=== PATIENT | female | born 1930 | race Caucasian/White ===

== ENCOUNTER 2017-02-08 13:32 | Emergency (ER) | payer MEDICARE ==
[2017-02-08] MEDS ORDERED: HYDROCODONE/ACETAMINOPHEN 5-325 MG TABLET PO ONE (13:57)
--- NOTE | 2017-02-08 14:22 | RADIOLOGY REPORT (SQ) ---
EXAM DESCRIPTION: CT HEAD WITHOUT COMPLETED DATE/TIME: 02/08/2017 2:06 pm REASON FOR STUDY: fall, gonzalez COMPARISON: 05/08/2012 TECHNIQUE: Axial images acquired through the brain without intravenous contrast. Images reviewed wi th bone, brain and subdural windows. Images stored on PACS. All CT scanners at this facility use dose modulation, iterative reconstruction, and/or weight based d osing when appropriate to reduce radiation dose to as low as reasonably achievable (ALARA). [facility]: Dose Right [facility]: CareDose [facility]: Dose Right [facility]: Teradose 4D [facility]: [employer] RADIATION DOSE: 63.81 mGy. LIMITATIONS: None. FINDINGS: VENTRICLES: Prominent. CEREBRUM: No masses. No hemorrhage. No midline shift. Areas of low density in the white matter mos t likely due to chronic micro-vascular ischemic change. No evidence for acute infarction. CEREBELLUM: No masses. No hemorrhage. No alteration of density. No evidence for acute infarction. EXTRAAXIAL SPACES: Mild age-related involutional change. No fluid collections. No masses. ORBITS AND GLOBE: No intra- or extraconal masses. Normal contour of globe without masses. CALVARIUM: No fracture. PARANASAL SINUSES: Fluid left maxillary sinus. SOFT TISSUES: No mass or hematoma. OTHER: No other significant finding. IMPRESSION: MILD CHRONIC CHANGES OF ATROPHY AND MICROVASCULAR ISCHEMIA. NO ACUTE PROCESS. TECHNICAL DOCUMENTATION: JOB ID: [id number] Quality ID # [id number]: Final reports with documentation of one or more dose reduction techniques (e.g., Au tomated exposure control, adjustment of the mA and/or kV according to patient size, use of iterative reconstruction technique) 2010 [employer]- All Rights Reserved
--- NOTE | 2017-02-08 15:10 | RADIOLOGY REPORT (SQ) ---
EXAM DESCRIPTION: CHEST SINGLE VIEW COMPLETED DATE/TIME: 02/08/2017 2:40 pm REASON FOR STUDY: fall, gonzalez COMPARISON: 08/23/2015 NUMBER OF VIEWS: One view. TECHNIQUE: Single frontal radiographic view of the chest acquired. LIMITATIONS: None. FINDINGS: LUNGS AND PLEURA: No opacities, masses or pneumothorax. No pleural effusion. MEDIASTINUM AND HILAR STRUCTURES: No masses. Contour normal. HEART AND VASCULAR STRUCTURES: Heart enlarged without failure. Normal vasculature. BONES: No acute findings. HARDWARE: Stable position of defibrillator. OTHER: No other significant finding. IMPRESSION: HEART ENLARGED WITHOUT FAILURE. NO OTHER SIGNIFICANT RADIOGRAPHIC FINDING IN THE CHEST. TECHNICAL DOCUMENTATION: JOB ID: [id number] [employer]- All Rights Reserved
--- NOTE | 2017-02-08 15:12 | RADIOLOGY REPORT (SQ) ---
EXAM DESCRIPTION: KNEE BILATERAL 1-2 VIEWS COMPLETED DATE/TIME: 02/08/2017 2:40 pm REASON FOR STUDY: fall, gonzalez COMPARISON: 08/25/2013 NUMBER OF VIEWS: Four views. TECHNIQUE: AP and lateral radiographic images acquired of the right and left knee. LIMITATIONS: None. FINDINGS: Bones are osteopenic. Bilateral knee arthroplasty there has been revision of the right fe moral component since the prior. No acute fracture identified. IMPRESSION: Intact knee arthroplasty. TECHNICAL DOCUMENTATION: JOB ID: [id number] [employer]- All Rights Reserved
[2017-02-08 15:26] LABS: APPEARANCE,URINE CLEAR; BILIRUBIN,URINE NEGATIVE (NEGATIVE); GLUCOSE, URINE NEGATIVE (NEGATIVE); KETONES,URINE NEGATIVE (NEGATIVE); LEUKOCYTE ESTERASE,URINE TRACE (NEGATIVE); NITRITE,URINE NEGATIVE (NEGATIVE); PROTEIN,URINE NEGATIVE (NEGATIVE); URINE SPECIFIC GRAVITY 1.008; UROBILINOGEN,URINE NEGATIVE mg/dL (<2.0)
[2017-02-08] MEDS ORDERED: PROCHLORPERAZINE EDISYLATE INJ 10 MG/2 ML VIAL IV ONE (15:35)
[2017-02-08] MEDS ORDERED: NORMAL SALINE 1000 ML 500 ML IV ONE (15:35)
[2017-02-08 16:56] LABS: ABSOLUTE EOSINOPHILS # (AUTO) 0.3 10^3/uL (0.0-0.6); ABSOLUTE LYMPHOCYTES (AUTO) 2.2 10^3/uL (0.5-4.7); ABSOLUTE MONOCYTES (AUTO) 0.6 10^3/uL (0.1-1.4); ABSOLUTE NEUT (AUTO) 4.8 10^3/uL (1.7-8.2); BASOPHILS % (AUTO) 0.6 % (0-2); EOSINOPHILS % (AUTO) 4.1 % (0-6); HEMOGLOBIN 10.3 g/dL (12.0-15.5); HGB HCT DIFFERENCE -0.1; LYMPHOCYTES % (AUTO) 27.2 % (13-45); MEAN CORPUSCULAR HEMOGLOBIN 31.6 pg (27.0-33.4); MEAN CORPUSCULAR HGB CONC 33.3 g/dL (32.0-36.0); MEAN CORPUSCULAR VOLUME 95 fl (80-97); MONOCYTES % (AUTO) 7.7 % (3-13); RED BLOOD COUNT 3.27 10^6/uL (3.72-5.28); RED CELL DISTRIBUTION WIDTH 13.4 % (11.5-14.0); SEGMENTED NEUTROPHILS % (AUTO) 60.4 % (42-78)
--- NOTE | 2017-02-08 17:01 | EKG REPORT ---
SEVERITY:- ABNORMAL ECG - ATRIAL-SENSED VENTRICULAR-PACED COMPLEXES : Confirmed by: Bijan Alberto MD 08-Feb-2017 17:00:58
[2017-02-08 17:12] LABS: ALANINE AMINOTRANSFERASE 32 U/L (9-52); ALBUMIN 3.5 g/dL (3.5-5.0); ALKALINE PHOSPHATASE 79 U/L (38-126); ANION GAP 9 (5-19); ASPARTATE AMINO TRANSFERASE 19 U/L (14-36); BILIRUBIN,DIRECT 0.4 mg/dL (0.0-0.4); BILIRUBIN,TOTAL 0.6 mg/dL (0.2-1.3); BLOOD UREA NITROGEN 37 mg/dL (7-20); CALCIUM 9.7 mg/dL (8.4-10.2); CARBON DIOXIDE 27 mmol/L (22-30); CHLORIDE 106 mmol/L (98-107); CREATINE KINASE 30 U/L (30-135); CREATININE RESULT 1.05 mg/dL (0.52-1.25); GLUCOSE 100 mg/dL (75-110); POTASSIUM 4.1 mmol/L (3.6-5.0); SODIUM 141.6 mmol/L (137-145); TOTAL PROTEIN 5.9 g/dL (6.3-8.2)
[2017-02-08 17:24] LABS: CREATINE KINASE MB 0.35 ng/mL (<4.55); TROPONIN I 0.028 ng/mL
--- NOTE | 2017-02-08 18:07 | ER Document Report ---
ED Fall - General Chief Complaint: Fall Stated Complaint: FALL,HEAD PAIN Time Seen by Provider: 02/08/17 13:40 Mode of Arrival: Medic Information source: Patient, Relative Notes: Patient is an 86-year-old female brought into the emergency department today for bilateral knee pain and headache. Patient had had a pacemaker placed 3 days ago and they apparently had some issues getting 1 of the leads in, so placed her left arm in a sling and told her not to use it. Patient walks with a walker at home anyway normally, so when she went to use the walker after being discharged and could not apply any weight with the left arm, she lost her balance and fell yesterday, falling on both knees. She did not hit her head or lose consciousness, hurt anything else. The headache she states started today. She had some numbness to her head and then pain across the front of her head "like a band." She does not have a history of migraines and did not injure the head. She denies any blurred vision , nausea, vomiting. TRAVEL OUTSIDE OF THE [place] IN LAST 30 DAYS: No - Related data Allergies/Adverse Reactions: Sulfa (Sulfonamide Antibiotics) Allergy (Intermediate, Verified 12/25/13 14:12) Generalized rash codeine [Codeine] Allergy (Verified 01/10/15 10:16) Past Medical History - General Information source: Patient, Relative - Social History Smoking Status: Never Smoker Chew tobacco use (# tins/day): No Frequency of alcohol use: None Drug Abuse: None Family History: Reviewed & Not Pertinent - Past Medical History Cardiac Medical History: Reports: Hx Congestive Heart Failure - last episode Sep 2012, Hx Hypercholesterolemia - meds intermittently x 25 years, Hx Hypertension Denies: Hx Atrial Fibrillation, Hx Coronary Artery Disease, Hx Heart Attack, Hx Peripheral Vascular Disease, Hx Pulmonary Embolism, Hx Heart Murmur Pulmonary Medical History: Reports: Hx Bronchitis - tx'ed effectively with Abx ( Rx 7-10 days), Hx Pneumonia - > 25 years ago, Hx Sleep Apnea - CPAP Qhs Dx'ed approx 10 years ago Denies: Hx Asthma, Hx COPD, Hx Respiratory Failure, Hx Tuberculosis Neurological Medical History: Denies: Hx Cerebrovascular Accident, Hx Seizures Endocrine Medical History: Denies: Hx Graves' Disease, Hx Hyperthyroidism, Hx Hypothyroidism Renal/ Medical History: Denies: Hx End Stage Renal Disease, Hx Kidney Stones, Hx Ovarian Cysts, Hx Peritoneal Dialysis, Hx Pelvic Inflammatory Disease Malignancy Medical History: Denies: Hx Breast Cancer, Hx Cervical Cancer, Hx Leukemia, Hx Lung Cancer, Hx Ovarian Cancer GI Medical History: Reports: Hx Hepatitis - 1961. Denies: Hx Crohn's Disease, Hx Gastroesophageal Reflux Disease, Hx Hiatal Hernia, Hx Irritable Bowel, Hx Liver Failure, Hx Ulcer Musculoskeltal Medical History: Reports Hx Arthritis, Denies Hx Fibromyalgia, Denies Hx Multiple Sclerosis, Denies Hx Muscular Dystrophy Psychiatric Medical History: Denies: Hx Bipolar Disorder, Hx Dementia, Hx Depression, Hx Post Traumatic Stress Disorder, Hx Schizophrenia Traumatic Medical History: Reports: Hx Fractures - RT tibial Fx 2011, denies surgical intervention, reports brace x 9 weeks Infectious Medical History: Reports: Hx Hepatitis - 1961. Denies: Hx HIV Past Surgical History: Reports: Hx Appendectomy - 1949, Hx Cardiac Surgery - pacemaker, Hx Cholecystectomy - open jovi, post-op dehiscence, Hx Hysterectomy - Unilat S&O 1956, COY 1974, Hx Orthopedic Surgery - Left Knee Sx, Right Knee Sx x 2, Back Sx (MILD). Denies: Hx Bowel Surgery, Hx Section, Hx Colostomy, Hx Coronary Artery Bypass Graft, Hx Gastric Bypass Surgery, Hx Herniorrhaphy, Hx Mastectomy, Hx Open Heart Surgery, Hx Pacemaker, Hx Tonsillectomy, Hx Tubal Ligation - Immunizations Hx Diphtheria, Pertussis, Tetanus Vaccination: No Hx Pneumococcal Vaccination: 09/15/08 Review of Systems - Review of Systems Constitutional: No symptoms reported EENT: No symptoms reported Cardiovascular: No symptoms reported Respiratory: No symptoms reported Gastrointestinal: No symptoms reported Genitourinary: No symptoms reported Female Genitourinary: No symptoms reported Musculoskeletal: See HPI Skin: No symptoms reported Hematologic/Lymphatic: No symptoms reported Neurological/Psychological: No symptoms reported Physical Exam - Vital signs Vitals: Temp Pulse Resp BP Pulse Ox 98.1 F 62 16 130/65 H 93 02/08/17 13:37 02/08/17 13:37 02/08/17 13:37 02/08/17 13:37 02/08/17 13:37 - Notes Notes: PHYSICAL EXAMINATION: GENERAL: Well-appearing and in no acute distress. HEAD: Atraumatic, normocephalic. EYES: Pupils equal round and reactive to light, extraocular movements intact, sclera anicteric, conjunctiva are normal. ENT: ear canals without erythema or foreign body, TMs pearly maxwell with good bony landmarks, nares patent, oropharynx clear without exudates. Moist mucous membranes. NECK: Normal range of motion, supple without lymphadenopathy LUNGS: CTAB and equal. No wheezes rales or rhonchi. HEART: Regular rate and rhythm without murmurs ABDOMEN: Soft, no tenderness. No guarding, no rebound BACK: no vertebral tenderness, normal ROM GI/: no CVA tenderness EXTREMITIES: Normal range of motion, no pitting edema. No cyanosis. NEUROLOGICAL: Cranial nerves grossly intact. Normal sensory/motor exams. PSYCH: Normal mood, normal affect. SKIN: Warm, Dry, normal turgor, no rashes or lesions noted Course - Vital Signs Vital signs: Temp Pulse Resp BP Pulse Ox 98.1 F 62 19 122/69 96 02/08/17 13:37 02/08/17 13:37 02/08/17 17:02 02/08/17 17:02 02/08/17 17:02 - Laboratory Result Diagrams: 02/08/17 16:40 02/08/17 16:40 Laboratory results interpreted by me: 02/08/17 02/08/17 02/08/17 15:05 16:40 16:40 RBC 3.27 L Hgb 10.3 L Hct 31.0 L BUN 37 H Est GFR (Non-Af Amer) 50 L Total Protein 5.9 L Ur Leukocyte Esterase TRACE H Discharge - Discharge Clinical Impression: Fall Qualifiers: Encounter type: initial encounter Qualified Code(s): W19.XXXA - Unspecified fall, initial encounter Knee pain, bilateral Qualifiers: Chronicity: acute Qualified Code(s): M25.561 - Pain in right knee; M25.562 - Pain in left knee Headache Qualifiers: Headache type: unspecified Headache chronicity pattern: acute headache Intractability: not intractable Qualified Code(s): R51 - Headache Condition: Stable Disposition: HOME, SELF-CARE Additional Instructions: Return immediately for any new or worsening symptoms. Follow up with Dr. Briones on Friday, call Friday morning to get in to his office. Prescriptions: Hydrocodone/Acetaminophen [[place] 5-325 mg Tablet] 1 tab PO Q4 #20 tablet
[2017-02-08 19:56] VITALS: BP 141/68
== END 2017-02-08 19:59 | disposition home or self-care (01) ==
LOC: ER 13:32
DX: R51 Headache (principal); M25.562 Pain in left knee; M25.561 Pain in right knee; W18.30XA Fall on same level, unspecified, initial encounter; Y92.009 Unspecified place in unspecified non-institutional (private) residence as the place of occurrence of the external cause; I50.9 Heart failure, unspecified; I11.0 Hypertensive heart disease with heart failure; E78.00 Pure hypercholesterolemia, unspecified; Z95.0 Presence of cardiac pacemaker; Z88.6 Allergy status to analgesic agent; Z88.2 Allergy status to sulfonamides; Z90.49 Acquired absence of other specified parts of digestive tract; Z90.710 Acquired absence of both cervix and uterus
CPT/HCPCS: 93005; 99285; 96374; 36415; 87086; 82553; 82550; 85025; 80053; 81001; 84484; 71010; 73560; 70450; 93010; J0780; J7030; A9270

== ENCOUNTER 2017-03-05 02:58 | Emergency (ER) | payer MEDICARE ==
[2017-03-05] MEDS ORDERED: NORMAL SALINE 1000 ML 1,000 ML IV ONE (04:15)
[2017-03-05] MEDS ORDERED: CLINDAMYCIN 600 MG/D5W RTU 50 ML IV ONE (04:15)
[2017-03-05] MEDS ORDERED: DEXAMETHASONE SOD PHOS INJ 10 MG/1 ML VIAL IV ONE (04:15)
--- NOTE | 2017-03-05 04:21 | ER Document Report ---
ED General - General Chief Complaint: Facial Swelling Stated Complaint: EAR PAIN Time Seen by Provider: 03/05/17 03:45 Mode of Arrival: Ambulatory Information source: Patient Notes: 86-year-old female presents to ED for facial swelling from right ear down to the mid neck area with right ear pain right upper jaw dental pain. TRAVEL OUTSIDE OF THE [place] IN LAST 30 DAYS: No - HPI Onset: Yesterday Onset/Duration: Gradual Quality of pain: Achy, Pressure Severity: Mild Pain Level: 2 Associated symptoms: Earache, Sore throat, Other - Facial swelling from right ear around to the midneck Exacerbated by: Movement Relieved by: Denies Similar symptoms previously: No Recently seen / treated by doctor: Yes - Related Data Allergies/Adverse Reactions: Sulfa (Sulfonamide Antibiotics) Allergy (Intermediate, Verified 12/25/13 14:12) Generalized rash codeine [Codeine] Allergy (Verified 01/10/15 10:16) Past Medical History - General Information source: Patient - Social History Smoking Status: Former Smoker Cigarette use (# per day): No Chew tobacco use (# tins/day): No Smoking Education Provided: No Frequency of alcohol use: None Drug Abuse: None Lives with: Family - granddaughter Family History: Arthritis, CAD, CVA, Hyperlipidemia, Hypertension, Malignancy. denies: COPD, DM, Thyroid Disfunction - Past Medical History Cardiac Medical History: Reports: Hx Congestive Heart Failure - last episode Sep 2012, Hx Hypercholesterolemia - meds intermittently x 25 years, Hx Hypertension Pulmonary Medical History: Reports: Hx Bronchitis - tx'ed effectively with Abx ( Rx 7-10 days), Hx Pneumonia - > 25 years ago, Hx Sleep Apnea - CPAP Qhs Dx'ed approx 10 years ago EENT Medical History: Reports: None Neurological Medical History: Reports: None Endocrine Medical History: Reports: None Renal/ Medical History: Reports: Hx 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 Malignancy Medical History: Reports: None GI Medical History: Reports: Hx Hepatitis - 1961 Musculoskeltal Medical History: Reports Hx Arthritis, Reports Hx Musculoskeletal Deformity, Reports Hx Musculoskeletal Trauma Skin Medical History: Reports None Psychiatric Medical History: Reports: None Traumatic Medical History: Reports: Hx Fractures - RT tibial Fx 2011, denies surgical intervention, reports brace x 9 weeks Infectious Medical History: Reports: Hx Hepatitis - 1961 Past Surgical History: Reports: Hx Appendectomy - 1950, Hx Cardiac Surgery - pacemaker, Hx Cholecystectomy - open jovi, post-op dehiscence, Hx Hysterectomy , Hx Orthopedic Surgery - Left Knee Sx, Right Knee Sx x 2, Back Sx (MILD), Hx Pacemaker - Immunizations Hx Diphtheria, Pertussis, Tetanus Vaccination: No Hx Pneumococcal Vaccination: 09/15/08 Review of Systems - Review of Systems Constitutional: No symptoms reported EENT: Ear pain, Mouth pain, Dental problem - 2 swelling, Other - Swelling from in front of the right ear down to the mid neck area Cardiovascular: No symptoms reported Respiratory: No symptoms reported Gastrointestinal: No symptoms reported Genitourinary: No symptoms reported Female Genitourinary: No symptoms reported Musculoskeletal: No symptoms reported Skin: No symptoms reported Hematologic/Lymphatic: No symptoms reported Neurological/Psychological: No symptoms reported -: Yes All other systems reviewed and negative Physical Exam - Vital signs Vitals: Temp Pulse Resp BP Pulse Ox 97.6 F 66 16 137/69 H 95 03/05/17 03:06 03/05/17 03:06 03/05/17 03:06 03/05/17 03:06 03/05/17 03:06 Interpretation: Normal - General General appearance: Appears well, Alert - HEENT Head: Normocephalic, Atraumatic Eyes: Normal Pupils: PERRL Teeth diagram: 1 - The decayed painful tooth, gum swollen, facial swelling Neck: Lymphadenopathy - Respiratory Respiratory status: No respiratory distress Chest status: Nontender Breath sounds: Normal Chest palpation: Normal - Cardiovascular Rhythm: Regular Heart sounds: Normal auscultation Murmur: No - Abdominal Inspection: Normal Distension: No distension Bowel sounds: Normal Tenderness: Nontender Organomegaly: No organomegaly - Back Back: Normal, Nontender - Extremities General upper extremity: Normal inspection, Nontender, Normal color, Normal ROM , Normal temperature General lower extremity: Normal inspection, Nontender, Normal color, Normal ROM , Normal temperature, Normal weight bearing. No: Rachel's sign - Neurological Neuro grossly intact: Yes Cognition: Normal Orientation: AAOx4 Dougherty Coma Scale Eye Opening: Spontaneous Dougherty Coma Scale Verbal: Oriented Rowena Coma Scale Motor: Obeys Commands Rowena Coma Scale Total: 15 Speech: Normal Motor strength normal: LUE, RUE, LLE, RLE Sensory: Normal - Psychological Associated symptoms: Normal affect, Normal mood - Skin Skin Temperature: Warm Skin Moisture: Dry Skin Color: Normal Course - Re-evaluation Re-evalutation: 03/05/17 07:17 O2 sat was 96% when I checked it before discharge 03/05/17 07:[address] Miller before doing CT. He recommended clindamycin Decadron IV fluids and CT soft tissue neck with contrast. These were completed and reviewed the results with Dr. Miller and he instructed to send patient home on clindamycin and sour candy. Patient has been instructed to return to the ED for any increase in swelling difficulty swallowing or increased pain. - Vital Signs Vital signs: Temp Pulse Resp BP Pulse Ox 97.5 F 65 16 126/57 H 91 L 03/05/17 06:15 03/05/17 06:15 03/05/17 06:15 03/05/17 06:15 03/05/17 06:15 - Laboratory Result Diagrams: 03/05/17 04:30 03/05/17 04:30 Laboratory results interpreted by me: 03/05/17 03/05/17 04:30 04:30 RBC 3.64 L Hgb 11.3 L Hct 33.7 L BUN 45 H Creatinine 1.70 H Est GFR ( Amer) 35 L Est GFR (Non-Af Amer) 29 L Glucose 112 H - Diagnostic Test Radiology reviewed: Image reviewed, Reports reviewed Discharge - Discharge Clinical Impression: Parotitis, acute Condition: Stable Disposition: HOME-SNF (ED ONLY) Additional Instructions: You have an infection to your parotid gland bilaterally. you will be placed on antibiotic needs to suck on sour candy to help drain the parotid gland. Clindamycin You have been given a prescription for the antibiotic clindamycin. It is often prescribed for infections in the mouth, such as dental infections or abscesses, and for skin infections due to MRSA. It's important that you take all the medication, unless instructed otherwise by your physician. Failure to complete the entire course can result in relapse of your condition. Common side effects of antibiotics include nausea, intestinal cramping, or diarrhea. Women may develop vaginal yeast infections, and babies can get yeast (thrush) in the mouth following the use of antibiotics. Contact your physician if you develop significant side effects from this medication. Allergy to this antibiotic can result in hives, wheezing, faintness, or itching. If symptoms of allergy occur, stop the medication and call the doctor. STEROID MEDICATION: You have been given an injection of medicine of the cortisone/steroid class. This medication is used to control inflammation or allergy. It is often continued as a pill for a short period of time, until the acute process subsides. There are usually no side effects from short-term use of cortisone-like medications. Some persons feel an increased sense of well-being and are not sleepy at bedtime. Long-term use of cortisone medications is best avoided, unless required for a severe condition. If your condition does not remit, or relapses after the course of corticosteroid medication, you should consult your physician. Intravenous (IV) Fluids As part of your care today, you received intravenous (IV) fluids. IV fluids are administered to patients who are dehydrated or to those who have certain chemical (electrolyte) abnormalities that need correcting. FOLLOW-UP CARE: If you have been referred to a physician for follow-up care, call the physician s office for an appointment as you were instructed or within the next two days. If you experience worsening or a significant change in your symptoms, notify the physician immediately or return to the Emergency Department at any time for re-evaluation. Patient needs to be seen by a physician within the next 24-48 hours. Prescriptions: Clindamycin HCl 300 mg PO QID 10 Days
[2017-03-05 04:52] LABS: ABSOLUTE BASOPHILS # (AUTO) 0.1 10^3/uL (0.0-0.2); ABSOLUTE EOSINOPHILS # (AUTO) 0.5 10^3/uL (0.0-0.6); ABSOLUTE LYMPHOCYTES (AUTO) 1.2 10^3/uL (0.5-4.7); ABSOLUTE MONOCYTES (AUTO) 0.6 10^3/uL (0.1-1.4); ABSOLUTE NEUT (AUTO) 6.1 10^3/uL (1.7-8.2); BASOPHILS % (AUTO) 0.7 % (0-2); EOSINOPHILS % (AUTO) 5.8 % (0-6); HEMATOCRIT 33.7 % (36.0-47.0); HEMOGLOBIN 11.3 g/dL (12.0-15.5); HGB HCT DIFFERENCE 0.2; LYMPHOCYTES % (AUTO) 14.4 % (13-45); MEAN CORPUSCULAR HGB CONC 33.5 g/dL (32.0-36.0); MEAN CORPUSCULAR VOLUME 93 fl (80-97); MONOCYTES % (AUTO) 6.8 % (3-13); RED BLOOD COUNT 3.64 10^6/uL (3.72-5.28); RED CELL DISTRIBUTION WIDTH 13.6 % (11.5-14.0); SEGMENTED NEUTROPHILS % (AUTO) 72.3 % (42-78); WHITE BLOOD COUNT 8.5 10^3/uL (4.0-10.5)
[2017-03-05 05:07] LABS: ANION GAP 11 (5-19); BLOOD UREA NITROGEN 45 mg/dL (7-20); CALCIUM 9.8 mg/dL (8.4-10.2); CARBON DIOXIDE 27 mmol/L (22-30); CHLORIDE 102 mmol/L (98-107); GLUCOSE 112 mg/dL (75-110); POTASSIUM 4.6 mmol/L (3.6-5.0)
--- NOTE | 2017-03-05 06:40 | RADIOLOGY REPORT (SQ) ---
EXAM DESCRIPTION: CT SOFT TISSUE NECK WITH COMPLETED DATE/TIME: 03/05/2017 6:05 am REASON FOR STUDY: face and neck swelling COMPARISON: None. TECHNIQUE: Post IV contrasted scanning from skull base through lung apices with review of bone, soft tissue and lung windows. Reconstructed coronal and sagittal MPR images reviewed. All images stored on PACS. All CT scanners at this facility use dose modulation, iterative reconstruction, and/or weight based d osing when appropriate to reduce radiation dose to as low as reasonably achievable (ALARA). [facility]: Dose Right [facility]: CareDose [facility]: Dose Right [facility]: Teradose 4D [facility]: [employer] CONTRAST TYPE AND DOSE: contrast/concentration: Isovue 370.00 mg/ml; Total Contrast Delivered: 75.0 ml; Total Saline Delivered: 55.0 ml RENAL FUNCTION: Creatinine 1.7. RADIATION DOSE: Up-to-date CT equipment and radiation dose reduction techniques were employed. CTDIv ol: 26.0 mGy. DLP: 841 mGy-cm. . LIMITATIONS: None. FINDINGS: SKULL BASE: Intact. MAJOR SALIVARY GLANDS: Wdyk-jw-zskayzbq enlargement and inflammation of bilateral parotid glands, rig ht more than left. No significant fluid collection. No abscess. No radiopaque sialolith. LYMPHADENOPATHY: No adenopathy. MUCOSAL MASSES OR ASYMMETRY: No mucosal masses or asymmetry. LARYNX/CORDS: No abnormal findings. VASCULAR STRUCTURES: 4.7 cm diameter pulmonary outflow tract consistent with pulmonary arterial hyper tension. Atherosclerosis. The LUNG APICES: Clear. BONES: 0.2 cm degenerative C3 anterolisthesis. Mild atlantoaxial osteoarthritis. Jriy-ui-qdpbawdk u pper thoracic disc desiccation. Xxsn-eo-xfusrxjj left C8 bony foraminal stenosis due to moderate spo ndylosis. Moderate see 6 C7 desiccated disc height loss. Mild-moderate bilateral C4 foraminal steno sis. THYROID: Normal size. No masses. PARANASAL SINUSES: Soft tissue occlusion of the left maxillary air cell. The OTHER: Left cardiac stimulation device and leads. IMPRESSION: 1. Ukbb-xg-lthadegw bilateral, acute parotitis, right more than left. 2. Chronic left maxillary sinusitis. 3. Pulmonary arterial hypertension pattern. TECHNICAL DOCUMENTATION: JOB ID: [id number] Quality ID # [id number]: Final reports with documentation of one or more dose reduction techniques (e.g., Au tomated exposure control, adjustment of the mA and/or kV according to patient size, use of iterative reconstruction technique) 2010 [employer]- All Rights Reserved
[2017-03-05] MEDS ORDERED: ACETAMINOPHEN 325 MG TABLET PO ONE (09:43)
[2017-03-05 11:26] VITALS: BP 124/60
== END 2017-03-05 11:27 ==
LOC: ER 02:58
DX: K11.21 Acute sialoadenitis (principal); R22.0 Localized swelling, mass and lump, head; H92.01 Otalgia, right ear; M54.2 Cervicalgia; R68.84 Jaw pain; K08.89 Other specified disorders of teeth and supporting structures; J02.9 Acute pharyngitis, unspecified; Z87.891 Personal history of nicotine dependence
CPT/HCPCS: 99284; 96375; 96365; 36415; 85025; 80048; 70491; A9270; J7030; J1100

== ENCOUNTER → 2019-07-08 | Day surgery (SDC) | payer MEDICARE ==
[~2019-07-08] MED LIST: BUPIVACAINE HCL 0.5 % INJ/PF 30 ML SDV ONE; LIDOCAINE 1% INJ-PF (10 MG/ML) 30 ML SDV ONE
--- NOTE | 2019-07-08 09:39 | Operative Report ---
PROCEDURE: KNEE RADIOFREQUENCY Left under ultrasound guidance Preoperative Diagnosis: left knee osteoarthritis Postoperative Diagnosis:left knee osteoarthritis 1. Superolateral genicular branch from the vastus lateralis 2. Superomedial genicular branch from the vastus medialis 3. Inferomedial genicular branch from the saphenous nerve 4. Medial retinacular branch from the vastus intermedius DATE OF PROCEDURE: 07 Jul 2019 ANESTHESIA: Local anesthesia COMPLICATIONS: None reported PROCEDURE IN DETAIL: Hx/PE/meds/allergies/applicable labs reviewed. No changes and no contraindications were found. Full description of the procedure was provided including benefits as well as possible complications including transient increased pain, stomach irritation, mood alteration, transient weakness or parasthesias as well as more serious nerve injury, bleeding, infection or allergic reaction. Informed consent was obtained and documented. The patient was brought to the procedure room and placed on the exam table in a comfortable supine position. The place for needle placement was obtained by manual palpation with ultrasound confirmation. The sterile field was prepared by chloroprep and sterile drapes. Local anesthesia superficial and deep was provided by local infiltration of 2% lidocaine. A 17g 75 mm radiofrequency introducer needle with a 4 mm active tip was placed overlying the left knee joint and using ultrasound guidance the needle was advanced to a bony endpoint on the superiolateral portion of the femoral condyle of the left knee. A second needle was advanced to a bony endpoint on the superiomedial portion of the femoral condyle. A third needle was then placed over the inferiomedial portion of the tibial condyle until a bony endpoint was met. 4th needle placed 3mm above the patella with the tip in contact with the Medial retinacular branch from the vastus intermedius. Attempted aspiration yielded no blood. Transverse ultrasound views showed all the needles at 50% depth of the femur and tibia. Motor stimulation was tested at 2.0 volts with no leg movement. Images were saved in AP and lateral. A mixture consisting of 0.5% bupivacaine was slowly injected. Then a radiofrequency ablation of each of the geniculate nerves were done at 80 degrees Celsius for 2 minutes and 30 seconds each. The needles were withdrawn. The patient tolerated the procedure well. After observation the patient was discharged with instructions and follow up. They were also provided contact information to call regarding any concerning symptoms or questions. IMPRESSION: 1. Successful geniculate left knee radiofrequency ablation was performed. 2. The patient was given prescription of home medicines. 3. RTC in 1-2 week(s).
== END ==
LOC: RAD 09:00
PROVIDERS: ATTEND Family Medicine
DX: M17.12 Unilateral primary osteoarthritis, left knee (principal)
CPT/HCPCS: 64640 ×4; J3490 ×2

== ENCOUNTER → 2020-03-30 | Day surgery (SDC) | payer MEDICARE ==
--- NOTE | 2020-03-30 10:24 | Operative Report ---
PROCEDURE: KNEE RADIOFREQUENCY right under ultrasound guidance Preoperative Diagnosis: Right knee osteoarthritis Postoperative Diagnosis: Right knee osteoarthritis 1. Superolateral genicular branch from the vastus lateralis 2. Superomedial genicular branch from the vastus medialis 3. Inferomedial genicular branch from the saphenous nerve 4. Medial retinacular branch from the vastus intermedius DATE OF PROCEDURE: March 30 2020 ANESTHESIA: Local anesthesia COMPLICATIONS: None reported PROCEDURE IN DETAIL: Hx/PE/meds/allergies/applicable labs reviewed. No changes and no contraindications were found. Full description of the procedure was provided including benefits as well as possible complications including transient increased pain, stomach irritation, mood alteration, transient weakness or parasthesias as well as more serious nerve injury, bleeding, infection or allergic reaction. Informed consent was obtained and documented. The patient was brought to the procedure room and placed on the exam table in a comfortable supine position. The place for needle placement was obtained by manual palpation with ultrasound confirmation. The sterile field was prepared by chloroprep and sterile drapes. Local anesthesia superficial and deep was provided by local infiltration of 2% lidocaine. A 17g 75 mm radiofrequency introducer needle with a 4 mm active tip was placed overlying the right knee joint and using ultrasound guidance the needle was advanced to a bony endpoint on the superiolateral portion of the femoral condyle of the right knee. A second needle was advanced to a bony endpoint on the superiomedial portion of the femoral condyle. A third needle was then placed over the inferiomedial portion of the tibial condyle until a bony endpoint was met. 4th needle placed 3mm above the patella with the tip in contact with the Medial retinacular branch from the vastus intermedius. Attempted aspiration yielded no blood. Transverse ultrasound views showed all the needles at 50% depth of the femur and tibia. Motor stimulation was tested at 2.0 volts with no leg movement. Images were saved in AP and lateral. A mixture consisting of 0.5% bupivacaine was slowly injected. Then a radiofrequency ablation of each of the geniculate nerves were done at 80 degrees Celsius for 2 minutes and 30 seconds each. The needles were withdrawn. The patient tolerated the procedure well. After observation the patient was discharged with instructions and follow up. They were also provided contact information to call regarding any concerning symptoms or questions. IMPRESSION: 1. Successful geniculate right knee radiofrequency ablation was performed. 2. The patient was given prescription of home medicines. 3. RTC in 1-2 week(s).
== END ==
LOC: RAD 09:51
PROVIDERS: ATTEND Family Medicine
DX: M17.11 Unilateral primary osteoarthritis, right knee (principal)
CPT/HCPCS: 64624; J3490 ×2

== ENCOUNTER 2020-04-10 19:53 | Observation (INO) | payer MEDICARE ==
--- NOTE | 2020-04-10 20:47 | RADIOLOGY REPORT (SQ) ---
CLINICAL INDICATION: weakness. TECHNIQUE: A single portable AP view was obtained of the chest at 0 821 hours. COMPARISON: August 23, 2015. FINDINGS: The cardiomediastinal silhouette is enlarged but stable with postsurgical change. Interval revision of the pacer defibrillator. The lungs are grossly clear. No evidence of effusion or pneumothorax. Mild dependent atelectasis. Laxity in the shoulders. IMPRESSION: Mild dependent atelectasis. Chronic changes, no adverse change. Interval revision of the pacer defibrillator.
--- NOTE | 2020-04-10 21:28 | ER Document Report ---
Doctor's Note Notes: 04/10/20 21:24 This is an 89-year-old female experiencing chest pain I was asked to see along with nurse practitioner. The patient has history of congestive heart failure and has pacemaker/defibrillator in situ. Patient questions whether her defibrillator might have fired yesterday. She has been sore in her chest since then. She describes subxiphoid discomfort and discomfort over the area of the pacer/defibrillator unit which is aggravated by movement. She denies any dyspnea, nausea, vomiting, diaphoresis or any radiation of pain. Patient also notes that she is using some kind of a platform to get in and out of her bed which is described as a "high bed" and she says this hurts her chest when she has to make this maneuver. She denies any fall or any other trauma. I reviewed the twelve-lead EKG and this is a paced rhythm with no other significant findings. We are in the process of interrogating the AICD. Patient's vital signs are stable and she is a moderately obese elderly woman who is exquisitely tender over the xiphoid and subxiphoid area. Her chest is clear cardiac rhythm is regular that murmur gallop or rub she has pacer defibrillator unit present over left upper anterior chest wall. She is mildly tender in this area as well. She has no lower extremity edema no calf tenderness. Her chest is clear. Current recommendation would be to interrogate the defibrillator and obtain a chest x-ray and troponin level. Clinically her current discomfort appears to be primarily musculoskeletal.
--- NOTE | 2020-04-10 21:35 | ER Document Report ---
ED Cardiac - General Chief Complaint: Chest Pain Stated Complaint: CHEST PAIN/WEAKNESS Time Seen by Provider: 04/10/20 20:51 Primary Care Provider: KEYLA ARCHER MD [Primary Care Provider] - Follow up as needed Mode of Arrival: Medic Information source: Patient Notes: Chest pain X2 nights and then today she is felt better all day with no energy tired week. She states she has pain in her epigastric area now. She states the pain would be there for a little while and then will go away she did take nitroglycerin for them. She states she does have a pacemaker defibrillator. Does have a history of congestive heart failure high cholesterol high blood pressure atrial field with a defibrillator pacemaker. She also has sleep apnea and on CPAP has a history of bronchitis and pneumonia. She has end-stage renal disease which she recovered from. She states it felt like her pacemaker defibrillator fired causing her to get very dizzy and seeing stars today. TRAVEL OUTSIDE OF THE [place] IN LAST 30 DAYS: No - HPI Patient complains to provider of: Chest pain Is the pain a: Chronic problem Chest pain location: Other - Epigastric and at the site of the pacemaker defibrillator Quality of pain: Other - Sharp does not radiate Severity now: Mild Severity at worst: Severe Pain level currently: 2 Cardiac risk factors: Hypertension, Smoker, + Family history, Dyslipidemia, Hx CHF Positive cardiac history: Yes Associated symptoms: Dizziness, Weakness, Other Exacerbated by: Denies Relieved by: Rest, NTG Similar symptoms previously: Yes Recently seen / treated by doctor: Yes - Related Data Allergies/Adverse Reactions: Sulfa (Sulfonamide Antibiotics) Allergy (Intermediate, Verified 12/25/13 14:12) Generalized rash codeine [Codeine] Allergy (Verified 01/10/15 10:16) Past Medical History - General Information source: Patient, Relative - Daughter - Social History Smoking Status: Former Smoker Frequency of alcohol use: None Drug Abuse: None Lives with: Other - She lives in a separate suite at her granddaughter's house Family History: Arthritis, CAD, CVA, Hyperlipidemia, Hypertension, Malignancy. denies: COPD, DM, Thyroid Disfunction Patient has suicidal ideation: No Patient has homicidal ideation: No - Past Medical History Cardiac Medical History: Reports: Hx Congestive Heart Failure - Last episode September 27, Hx Hypercholesterolemia, Hx Hypertension Pulmonary Medical History: Reports: Hx Bronchitis - tx'ed effectively with Abx (Rx 7-10 days), Hx Pneumonia - > 25 years ago, Hx Sleep Apnea - CPAP Qhs Dx'ed approx 10 years ago EENT Medical History: Reports: None Neurological Medical History: Reports: None Endocrine Medical History: Reports: None Renal/ Medical History: Reports: Hx 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 Malignancy Medical History: Reports: None GI Medical History: Reports: Hx Hepatitis - 1961, Hx Colonoscopy, Hx Endoscopy Musculoskeletal Medical History: Reports Hx Arthritis, Reports Hx Musculoskeletal Deformity, Reports Hx Musculoskeletal Trauma Skin Medical History: Reports None Psychiatric Medical History: Reports: None Traumatic Medical History: Reports: Hx Fractures - RT tibial Fx 2011, denies surgical intervention, reports brace x 9 weeks Infectious Medical History: Reports: Hx Hepatitis - 1961 Past Surgical History: Reports: Hx Appendectomy - 1949, Hx Cardiac Surgery - pacemaker, Hx Cholecystectomy - open jovi, post-op dehiscence, Hx Hysterectomy, Hx Orthopedic Surgery - Left Knee Sx, Right Knee Sx x 2, Back Sx (MILD), Hx Pacemaker - Immunizations Hx Diphtheria, Pertussis, Tetanus Vaccination: No Hx Pneumococcal Vaccination: 09/15/08 Review of Systems - Review of Systems Constitutional: No symptoms reported EENT: No symptoms reported Cardiovascular: Chest pain, Dizziness, Other - Tenderness to palpation to the epigastric area and to the site of the defibrillator pacemaker Respiratory: No symptoms reported Gastrointestinal: Abdominal pain - Mid epigastric Genitourinary: No symptoms reported Female Genitourinary: No symptoms reported Musculoskeletal: No symptoms reported Skin: No symptoms reported Hematologic/Lymphatic: No symptoms reported Neurological/Psychological: Weakness -: Yes All other systems reviewed and negative Physical Exam - Vital signs Vitals: Resp BP Pulse Ox 17 138/56 H 98 04/10/20 20:02 04/10/20 20:02 04/10/20 20:02 Interpretation: Normal - General General appearance: Appears well, Alert - HEENT Head: Normocephalic, Atraumatic Eyes: Normal Pupils: PERRL - Respiratory Respiratory status: No respiratory distress Chest status: Nontender Breath sounds: Normal Chest palpation: Normal - Cardiovascular Rhythm: Regular, Other - Paced rhythm Heart sounds: Normal auscultation Murmur: No - Abdominal Inspection: Normal Distension: No distension Bowel sounds: Normal Tenderness: Nontender Organomegaly: No organomegaly - Back Back: Normal, Nontender - Extremities General upper extremity: Normal inspection, Nontender, Normal color, Normal ROM, Normal temperature General lower extremity: Normal inspection, Nontender, Normal color, Normal ROM, Normal temperature, Normal weight bearing. No: Rachel's sign - Neurological Neuro grossly intact: Yes Cognition: Normal Orientation: AAOx4 Rowena Coma Scale Eye Opening: Spontaneous Imbler Coma Scale Verbal: Oriented Imbler Coma Scale Motor: Obeys Commands Rowean Coma Scale Total: 15 Speech: Normal Motor strength normal: LUE, RUE, LLE, RLE Sensory: Normal - Psychological Associated symptoms: Normal affect, Normal mood - Skin Skin Temperature: Warm Skin Moisture: Dry Skin Color: Normal Course - Re-evaluation Re-evalutation: 04/11/20 01:52 Discussed with patient multiple times with Dr. Wilkes throughout her visit today. Her potassium was 6.1 we did redraw the blood the second time it was 6.2 BUN/creatinine were both very elevated. Patient states she has had a history of renal failure in the past but was able to recover. I did look back to the BUN and creatinine 12/2016 and they are pretty much the same now was then. We have treated her with Kayexalate, glucose and insulin, and calcium gluconate. I have discussed her case with Dr. Ulloa the hospitalist. She will be admitted to Dr. Ulloa, observation telemetry tonight. - Vital Signs Vital signs: Temp Pulse Resp BP Pulse Ox 97.9 F 23 H 156/56 H 98 04/10/20 21:26 04/11/20 01:31 04/11/20 01:31 04/11/20 01:31 - Laboratory Result Diagrams: 04/10/20 21:12 04/10/20 22:56 Laboratory results interpreted by me: 04/10/20 04/10/20 04/10/20 21:12 21:12 22:56 RBC 3.46 L Hgb 11.4 L Hct 34.0 L MCV 98 H RDW 14.6 H Sodium 133.7 L 132.6 L Potassium 6.1 H* 6.2 H* Anion Gap 4 L BUN 48 H 47 H Creatinine 1.51 H 1.47 H Est GFR ( Amer) 39 L 41 L Est GFR (MDRD) Non-Af 33 L 34 L Calcium 10.5 H Creatine Kinase 25 L Total Protein 6.1 L - Diagnostic Test Radiology reviewed: Image reviewed, Reports reviewed - EKG Interpretation by Me Additional EKG results interpreted by me: 04/11/20 01:52 Paced rhythm Discharge - Discharge Clinical Impression: Hyperkalemia Chest pain Qualifiers: Chest pain type: unspecified Qualified Code(s): R07.9 - Chest pain, unspecified Disposition: ADMITTED OBSERVATION Admitting Provider: Laila (Hospitalist) Unit Admitted: Telemetry Referrals: KEYLA ARCHER MD [Primary Care Provider] - Follow up as needed
[2020-04-10 21:38] LABS: ABSOLUTE EOSINOPHILS # (AUTO) 0.3 10^3/uL (0.0-0.6); ABSOLUTE LYMPHOCYTES (AUTO) 1.7 10^3/uL (0.5-4.7); ABSOLUTE MONOCYTES (AUTO) 0.6 10^3/uL (0.1-1.4); ABSOLUTE NEUT (AUTO) 4.3 10^3/uL (1.7-8.2); BASOPHILS % (AUTO) 0.3 % (0-2); EOSINOPHILS % (AUTO) 4.3 % (0-6); HEMOGLOBIN 11.4 g/dL (12.0-15.5); LYMPHOCYTES % (AUTO) 24.3 % (13-45); MEAN CORPUSCULAR HEMOGLOBIN 32.9 pg (27.0-33.4); MEAN CORPUSCULAR HGB CONC 33.5 g/dL (32.0-36.0); MEAN CORPUSCULAR VOLUME 98 fl (80-97); PLATELET COUNT 272 10^3/uL (150-450); RED BLOOD COUNT 3.46 10^6/uL (3.72-5.28); RED CELL DISTRIBUTION WIDTH 14.6 % (11.5-14.0); SEGMENTED NEUTROPHILS % (AUTO) 63.1 % (42-78); TOTAL CELLS COUNTED % (AUTO) 100 %; WHITE BLOOD COUNT 6.9 10^3/uL (4.0-10.5)
[2020-04-10 21:52] LABS: ALBUMIN 3.6 g/dL (3.5-5.0); ALKALINE PHOSPHATASE 78 U/L (38-126); ANION GAP 5 (5-19); ASPARTATE AMINO TRANSFERASE 20 U/L (14-36); BILIRUBIN,DIRECT 0.2 mg/dL (0.0-0.4); BILIRUBIN,TOTAL 0.3 mg/dL (0.2-1.3); BLOOD UREA NITROGEN 48 mg/dL (7-20); CALCIUM 10.1 mg/dL (8.4-10.2); CARBON DIOXIDE 25 mmol/L (22-30); CHLORIDE 104 mmol/L (98-107); CREATINE KINASE 25 U/L (30-135); GLUCOSE 104 mg/dL (75-110); TOTAL PROTEIN 6.1 g/dL (6.3-8.2)
[2020-04-10 22:04] LABS: CREATINE KINASE MB 0.55 ng/mL (<4.55); TROPONIN I 0.016 ng/mL
[2020-04-10 22:19] LABS: POTASSIUM 6.1 mmol/L (3.6-5.0)
[2020-04-10 23:24] LABS: BLOOD UREA NITROGEN 47 mg/dL (7-20); CALCIUM 10.5 mg/dL (8.4-10.2); CHLORIDE 107 mmol/L (98-107); GLUCOSE 105 mg/dL (75-110)
[2020-04-10 23:55] LABS: CARBON DIOXIDE 22 mmol/L (22-30)
[2020-04-10 23:57] LABS: ANION GAP 4 (5-19)
[2020-04-11] LABS: POTASSIUM 6.2 mmol/L (3.6-5.0)
[2020-04-11] MEDS ORDERED: INSULIN REG, HUMAN 100 UNIT/ML 3 ML VIAL (PYX) IV ONE (00:01)
[2020-04-11] MEDS ORDERED: CALCIUM GLUCONATE 1000 MG/10 ML INJ IV ONE (00:01)
[2020-04-11] MEDS ORDERED: DEXTROSE 50%-WATER 25 GM/50 ML DISP.SYRIN IV ONE (00:01)
[2020-04-11] MEDS ORDERED: SODIUM POLYSTYRENE SULFONATE 15 GM/60 ML PO ONE (01:06)
[2020-04-11] MEDS ORDERED: ONDANSETRON HCL INJ/PF 4 MG/2 ML SDV IV PRN (02:52)
[2020-04-11] MEDS ORDERED: MAG HYDROX/AL HYDROX/SIMETH SUSP 30 ML UDCUP PO PRN (02:52)
[2020-04-11] MEDS ORDERED: MAGNESIUM HYDROXIDE SUSP 30 ML UDCUP PO PRN (02:52)
[2020-04-11] MEDS ORDERED: MELATONIN 5 MG TABLET PO PRN ×2 (03:04→23:00)
[2020-04-11] MEDS ORDERED: GUAIFENESIN SYRP 200 MG/10 ML UDC PO PRN (03:04)
[2020-04-11] MEDS ORDERED: MORPHINE SULFATE 10 MG/ML INJ IV PRN ×2 (03:04→22:34)
[2020-04-11] MEDS ORDERED: LORAZEPAM INJ 2 MG/1 ML VIAL IV PRN (03:04)
[2020-04-11] MEDS ORDERED: NITROGLYCERIN 0.4 MG/TAB 25 TAB/BOTTLE SL PRN (03:04)
[2020-04-11] MEDS ORDERED: LEVALBUTEROL HCL NEB 0.63 MG/3 ML AMPUL NEB PRN (03:06)
[2020-04-11 03:35] LABS: BLOOD UREA NITROGEN 43 mg/dL (7-20); CALCIUM 11.6 mg/dL (8.4-10.2); CHLORIDE 104 mmol/L (98-107); GLUCOSE 195 mg/dL (75-110)
[2020-04-11 03:46] LABS: ANION GAP 8 (5-19); CARBON DIOXIDE 22 mmol/L (22-30)
[2020-04-11 03:49] LABS: POTASSIUM 4.8 mmol/L (3.6-5.0)
[2020-04-11] MEDS ORDERED: HEPARIN SOD (PORCINE) 5,000 UNIT/ML 1 ML VIAL SUBCUT SCH (06:00)
[2020-04-11] MEDS: PANTOPRAZOLE SODIUM 40 MG TABLET.DR PO SCH (06:55)
--- NOTE | 2020-04-11 06:55 | PDOC H&P ---
History of Present Illness Admission Date/PCP: 04/11/2020 01:50 KEYLA ARCHER MD Patient complains of: Chest pain History of Present Illness: GEETHA ABDUL is a 89 year old female who presented emergency room with a 2- day history of epigastric/chest pain. She admits having pain each of the last 2 nights, waking with a severe constant sharp pain in her epigastrium radiating along the left costal margin to the anterior axillary line, for which she took nitroglycerin and received relief after resting for a few minutes. She associates her pain with general fatigue and weakness for the last 2 days since the first episode of pain. She also associates the pain with an episode of similar sharp pain today causing her to feel very dizzy and seeing stars which she attributed to her pacemaker-defibrillator firing. She denies other associated or accompanying signs and symptoms. She admits prior similar episodes. She has not identified any aggravating or ameliorating factors for her epigastric/chest pain. Past Medical History Cardiac Medical History: Reports: Congestive Heart Failure - Last episode September 27, Hyperlipidema, Hypertension Denies: Atrial Fibrillation, Coronary Artery Disease, Myocardial Infarction, Peripheral Vascular Disease, Pulmonary Embolism, Heart Murmur Pulmonary Medical History: Reports: Bronchitis - tx'ed effectively with Abx (Rx 7-10 days), Pneumonia - > 25 years ago, Sleep Apnea - CPAP Qhs Dx'ed approx 10 years ago Denies: Asthma, Chronic Obstructive Pulmonary Disease (COPD), Respiratory Failure, Tuberculosis EENT Medical History: Reports: Eyes - Eyeglasses, Ears - Hearing aids Neurological Medical History: Denies: Hemorrhagic CVA, Ischemic CVA, Seizures Endocrine Medical History: Denies: Diabetes Mellitus Type 1, Diabetes Mellitus Type 2, Hyperthyroidism, Hypothyroidism Renal/ Medical History: Reports: Chronic Kidney Disease Denies: Nephrolithiasis Malignancy Medical History: Reports: None GI Medical History: Reports: Hepatitis - 1961 Denies: Cirrhosis, Crohn's Disease, Gastroesophageal Reflux Disease, Hiatal Hernia, Ulcerative Colitis Musculoskeltal Medical History: Reports: Arthritis Denies: Fibromyalgia Skin Medical History: Denies: Eczema, Psoriasis Psychiatric Medical History: Denies: Alcohol Dependency, Bipolar Disorder, Dementia, Depression, Post Traumatic Stress Disorder, Substance Abuse, Tobacco Dependency Traumatic Medical History: Reports: None Hematology: Reports: Anemia Denies: Bleeding Tendencies Infectious Medical History: Reports: None Past Surgical History Past Surgical History: Reports: Appendectomy - 1950, Cholecystectomy - open jovi, post-op dehiscence, Hysterectomy, Knee Replacement, Orthopedic Surgery - Left Knee Sx, Right Knee Sx x 2, Back Sx (MILD), Pacemaker - AICD Social History Information Source: Patient Lives with: Family, Other - She lives in a separate suite at her granddaughter's house Smoking Status: Former Smoker Electronic Cigarette use?: No Frequency of Alcohol Use: None Hx Recreational Drug Use: No Drugs: None Hx Prescription Drug Abuse: No - Advance Directive Resuscitation Status: Full Code Surrogate healthcare decision maker:: Phyllis Tanner Family History Family History: Arthritis, CAD, CVA, Hyperlipidemia, Hypertension, Malignancy. denies: COPD, DM, Thyroid Disfunction Parental Family History Reviewed: Yes Children Family History Reviewed: No Sibling(s) Family History Reviewed.: Yes Medication/Allergy Home Medications: Acetaminophen [Tylenol Extra Strength 500 mg Tablet] 2 tab PO Q6H PRN 10/21/13 Cholecalciferol (Vitamin D3) [Vitamin D3 1000 Unit Tablet] 1,000 unit PO DAILY 10/21/13 Febuxostat [Uloric] 40 mg PO Q3DAYS 10/21/13 Fluticasone Propionate [Flonase Nasal Landis 50 Mcg/Landis 16 gm] 1 spray NASL DA ENA 10/21/13 Lisinopril [Zestril] 10 mg PO QAM 10/21/13 Nortriptyline HCl [Pamelor 25 mg Capsule] 25 mg PO QPM 10/21/13 Pravastatin Sodium [Pravachol] 20 mg PO QPM 10/21/13 Vitamin B Complex 1 each PO DAILY 10/21/13 Hydrocodone/Acetaminophen [Vicodin 5-300 mg Tablet] 1 tab PO Q6 PRN 11/01/13 Isosorbide Mononitrate [Isosorbide Mononitrate ER] 1 tab PO DAILY 03/17/14 Diclofenac Sodium [Voltaren] 100 gm TP QID 01/10/15 Diphenoxylate HCl/Atropine [Lomotil 2.5-0.025 mg Tablet] 1 each PO QID PRN 01/10/15 Lansoprazole [Prevacid] 30 mg PO DAILY 01/10/15 [place]-3 Fatty Acids/Fish Oil [[place] 3 Fish Oil Softgel] 1 each PO DAILY 01/10/15 Aspirin [Aspirin 81 mg Chewable Tablet] 81 mg PO DAILY 03/19/15 Bumetanide [Bumex 1 mg Tablet] 1 tab PO DAILY 03/19/15 Carvedilol [Coreg 12.5 mg Tablet] 12.5 mg PO Q12 03/19/15 Fexofenadine HCl [Allergy Relief] 60 mg PO BID 03/19/15 Olopatadine HCl [Pataday] 2.5 ml OP DAILY 03/19/15 Sodium Chloride [Saline Nasal Landis] 2 spray NS DAILY PRN 03/19/15 Albuterol Sulfate [Ventolin Hfa] 2 puff IH Q6H 08/23/15 Cyanocobalamin (Vitamin B-12) [B-12] 1,000 mcg PO DAILY 08/23/15 Metolazone [Zaroxolyn 2.5 Mg Tablet] 2.5 mg PO ASDIR PRN #30 tablet 08/23/15 Metoprolol Succinate 25 mg PO DAILY 08/23/15 Nitroglycerin 0.4 mg SL PRN PRN 08/23/15 Hydrocodone/Acetaminophen [[place] 5-325 mg Tablet] 1 tab PO Q4 #20 tablet 02/08/17 Clindamycin HCl 300 mg PO QID 10 Days capsule 03/05/17 Allergies/Adverse Reactions: Sulfa (Sulfonamide Antibiotics) Allergy (Intermediate, Verified 12/25/13 14:12) Generalized rash codeine [Codeine] Allergy (Verified 01/10/15 10:16) Review of Systems Constitutional: PRESENT: as per HPI, fatigue, weakness. ABSENT: chills, fever(s) Eyes: ABSENT: visual disturbances, other - Eye pain Ears: ABSENT: hearing changes, other - Ear pain Nose, Mouth, and Throat: ABSENT: headache(s), sore throat Cardiovascular: PRESENT: as per HPI, chest pain. ABSENT: palpitations Respiratory: ABSENT: cough, dyspnea Gastrointestinal: PRESENT: as per HPI, abdominal pain. ABSENT: constipation, diarrhea, nausea, vomiting Genitourinary: ABSENT: dysuria, hematuria Musculoskeletal: ABSENT: back pain, joint swelling Integumentary: ABSENT: pruritus, rash Neurological: PRESENT: as per HPI, dizziness, other - Seeing stars. ABSENT: confusion, convulsions, focal weakness, memory loss, syncope Psychiatric: ABSENT: anxiety, depression Endocrine: ABSENT: cold intolerance, heat intolerance Hematologic/Lymphatic: ABSENT: easy bleeding, easy bruising Allergic/Immunologic: ABSENT: seasonal rhinorrhea Physical Exam Vital Signs: Temp Pulse Resp BP Pulse Ox 97.9 F 23 H 156/56 H 98 04/10/20 21:26 04/11/20 01:31 04/11/20 01:31 04/11/20 01:31 General appearance: PRESENT: no acute distress, cooperative, morbidly obese Head exam: PRESENT: atraumatic, normocephalic Eye exam: PRESENT: conjunctiva pink. ABSENT: conjunctival injection, scleral icterus Ear exam: PRESENT: normal external ear exam. ABSENT: bleeding, drainage Mouth exam: PRESENT: dry mucosa, neck supple Neck exam: ABSENT: thyromegaly, tracheal deviation Respiratory exam: PRESENT: clear to auscultation jesus, symmetrical, unlabored Cardiovascular exam: PRESENT: RRR. ABSENT: clicks, gallop, rubs Pulses: PRESENT: normal radial pulses, +1 pedal pulses bilateral Vascular exam: PRESENT: normal capillary refill. ABSENT: pallor GI/Abdominal exam: PRESENT: normal bowel sounds, soft. ABSENT: tenderness Rectal exam: PRESENT: deferred Extremities exam: ABSENT: joint swelling, tenderness Musculoskeletal exam: ABSENT: deformity, dislocation Neurological exam: PRESENT: alert, oriented to person, oriented to place, orie nted to time, oriented to situation, CN II-XII grossly intact. ABSENT: motor sensory deficit Psychiatric exam: PRESENT: appropriate affect, normal mood Skin exam: PRESENT: dry, intact, warm. ABSENT: jaundice, rash, urticaria Results Laboratory Results: 04/10/20 21:12 04/10/20 22:56 04/10/20 04/10/20 04/10/20 21:12 21:12 22:56 WBC 6.9 RBC 3.46 L Hgb 11.4 L Hct 34.0 L MCV 98 H MCH 32.9 MCHC 33.5 RDW 14.6 H Plt Count 272 Seg Neutrophils % 63.1 Sodium 133.7 L 132.6 L Potassium 6.1 H* 6.2 H* Chloride 104 107 Carbon Dioxide 25 22 Anion Gap 5 4 L BUN 48 H 47 H Creatinine 1.51 H 1.47 H Est GFR ( Amer) 39 L 41 L Glucose 104 105 Calcium 10.1 10.5 H Magnesium 2.1 Total Bilirubin 0.3 AST 20 Alkaline Phosphatase 78 Total Protein 6.1 L Albumin 3.6 04/10/20 04/10/20 04/10/20 21:12 21:12 22:56 Creatine Kinase 25 L CK-MB (CK-2) 0.55 Troponin I 0.016 0.013 Impressions: Chest X-Ray 04/10/20 19:59 IMPRESSION: Mild dependent atelectasis. Chronic changes, no adverse change. Interval revision of the pacer defibrillator. Assessment and Plan - Diagnosis (1) Chest pain Qualifiers: Chest pain type: unspecified Qualified Code(s): R07.9 - Chest pain, unspecified Is this a current diagnosis for this admission?: Yes (2) Hyperkalemia Is this a current diagnosis for this admission?: Yes (3) Presence of automatic cardioverter/defibrillator (AICD) Is this a current diagnosis for this admission?: Yes (4) Chronic kidney disease, stage III (moderate) Is this a current diagnosis for this admission?: Yes (5) Hypertension Qualifiers: Hypertension type: essential hypertension Qualified Code(s): I10 - Essential (primary) hypertension Is this a current diagnosis for this admission?: Yes (6) Hyperlipidemia Qualifiers: Hyperlipidemia type: unspecified Qualified Code(s): E78.5 - Hyperlipidemia, unspecified Is this a current diagnosis for this admission?: Yes - Plan Summary Summary: Patient will be admitted to the medical floor telemetry unit observation status. She will receive routine supportive and symptomatic cares. She will receive morphine sulfate 2 to 4 mg IV every 2 hours as needed for pain not controlled by nitroglycerin sublingual. She will receive Ativan 1 mg IV every 4 hours as needed for anxiety or restlessness. Serial cardiac enzymes will be obtained. She will receive Kayexalate 15 mg p.o. every 6 hours x4 doses. She will be seen in consultation by Dr. Guo for cardiology. CBCs and metabolic profiles as well as other laboratory and/or radiographic evaluations will be obtained as needed. She will be on a cardiac diet. - Time Time Spent with patient: 15-24 minutes Medications reviewed and adjusted accordingly: Yes Anticipated Discharge Disposition: Home, Self Care Anticipated Discharge: within 36 hours
[2020-04-11] MEDS: RINGERS SOLUTION,LACTATED 1,000 ML IV PRN ×2 (08:21→19:20)
[2020-04-11 09:00] LABS: CREATINE KINASE MB 0.78 ng/mL (<4.55); TROPONIN I 0.018 ng/mL
[2020-04-11] MEDS: DOCUSATE SODIUM 100 MG CAPSULE PO SCH ×2 (10:07→18:00)
--- NOTE | 2020-04-11 10:09 | EKG REPORT ---
SEVERITY:- ABNORMAL ECG - ATRIAL-VENTRICULAR DUAL-PACED RHYTHM : Confirmed by: Brooklyn Martinez MD 11-Apr-2020 10:08:16
--- NOTE | 2020-04-11 11:36 | PDOC CONSULTATION ---
Consultation Consult Date: 04/11/20 Attending physician:: SHELLY PAUL Provider Consulted: GILBERT GALLAGHER Consult reason:: CP History of Present Illness Admission Date/PCP: 04/11/20 02:14 KEYLA ARCHER MD History of Present Illness: GEETHA ABDUL is an 89-year-old female with history of heart failure with reduced ejection fraction estimated to be between 10 and 20% on echocardiogram on 01/07/17, hypertension, hyperlipidemia and ICD placement who is consulted to our service for evaluation of chest pain. The patient had been in her usual state of health until approximately 2 days ago when she began to have intermittent episodes of epigastric/lower chest pain. Unfortunately the patient is a very poor historian and cannot provide further details other than she felt as sharp pain in the epigastric region lasting for a few minutes at a time associated with not feeling well. There was no radiation of the pain and there was no associated shortness of breath or diaphoresis. The patient does not remember how long the discomfort last but it is not triggered by physical activities. Her work-up in the emergency room has been negative with detectable but indeterminate troponins and no evidence of significant pathology on chest x- ray. She is currently asymptomatic. Physical exam on 04/11/2020: GENERAL: Pleasant and conversational. Oriented x3 with normal mood. Not in acute distress. Well groomed and well developed. HEENT: Normocephalic, atraumatic. Pupils equal. Sclerae anicteric. Oropharynx moist. NECK: No JVD. No carotid bruits. LUNGS: Clear to auscultation bilaterally. Normal respiratory effort without the use of accessory muscles or intercostal retractions. CARDIOVASCULAR: Regular rate and rhythm, normal S1 and S2 without murmurs, rubs, or gallops. PMI not displaced. ABDOMEN: Epigastric area is tender to palpation and reproduces her index symptoms. No bruit. No splenomegaly or hepatomegaly. No abdominal aorta bruit noted. EXTREMITIES: No edema, no cyanosis, no clubbing. +2 pulses femoral and pedal pulses bilaterally. SKIN: No lesions or rashes. MUSCULOSKELETAL: No chest tenderness to palpation. NEUROLOGIC: Nonfocal. No gross sensory or motor deficits bilateral upper or lower extremities. Outpatient medications: 1. Allopurinol 100 MG Oral Tablet; TAKE ONE TABLET BY MOUTH DAILY 2. Carvedilol 12.5 MG Oral Tablet; TAKE 1 TABLET TWICE DAILY WITH MEALS 3. Centrum Silver Oral Tablet 4. Eliquis 2.5 MG Oral Tablet; TAke 1 tablet twice a day 5. Fexofenadine HCl - 60 MG Oral Tablet; TAKE 1 TABLET EVERY 12 HOURS DAILY 6. HYDROcodone-Acetaminophen 7.5-325 MG Oral Tablet 7. Nitrofurantoin Monohyd Macro 100 MG Oral Capsule; TAKE 1 CAPSULE EVERY 12 HOURS DAILY 8. Nitroglycerin 0.4 MG Sublingual Tablet Sublingual; DISSOLVE 1 TABLET UNDER TONGUE NEEDED FORCHEST PAIN EVERY 5 MINUTES UP TO 3 DOSES 9. Nortriptyline HCl - 25 MG Oral Capsule; TAKE 1 CAPSULE AT BEDTIME 10. [place]-3 Fish Oil 1000 MG Oral Capsule; TAKE 1 CAPSULE DAILY 11. Pravastatin Sodium 40 MG Oral Tablet; TAKE 1 TABLET AT BEDTIME 12. Prevacid 30 MG Oral Capsule Delayed Release; TAKE 1 CAPSULE EVERY MORNING DAILY 13. Super B Complex TABS 14. Tylenol Extra Strength 500 MG Oral Tablet 15. Vitamin D3 25 MCG (1000 UT) Oral Capsule; TAKE DIRECTED 16. Voltaren 1 % GEL Cardiac studies: Echocardiogram on 01/07/17: -Very limited study. -Left ventricle is mildly dilated. -Severe left ventricular global hypokinesis. -Severe LV dysfunction with EF between 10-20%. -Moderate left atrial enlargement. -A device lead is present in the right ventricle. -Valvular structures are difficult to evaluate however the mitral valve apparatus appears to be mildly calcified without stenosis. -Mild TR, mild AI. -Cannot completely rule out a degree of pulmonary hypertension given the eccentricity of the jet. Past Medical History Cardiac Medical History: Reports: Congestive Heart Failure - Last episode Davis kerr 13, Hyperlipidema, Hypertension Denies: Atrial Fibrillation, Coronary Artery Disease, Myocardial Infarction, Peripheral Vascular Disease, Pulmonary Embolism, Heart Murmur Pulmonary Medical History: Reports: Bronchitis - tx'ed effectively with Abx (Rx 7-10 days), Pneumonia - > 25 years ago, Sleep Apnea - CPAP Qhs Dx'ed approx 10 years ago Denies: Asthma, Chronic Obstructive Pulmonary Disease (COPD), Respiratory Failure, Tuberculosis EENT Medical History: Reports: None, Eyes - Eyeglasses, Ears - Hearing aids Neurological Medical History: Reports: None Denies: Hemorrhagic CVA, Ischemic CVA, Seizures Endocrine Medical History: Reports: None Denies: Diabetes Mellitus Type 1, Diabetes Mellitus Type 2, Hyperthyroidism, Hypothyroidism Renal/ Medical History: Reports: Chronic Kidney Disease, 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 Denies: Nephrolithiasis Malignancy Medical History: Reports: None Denies: Breast Cancer, Cervical Cancer, Leukemia, Lung Cancer, Ovarian Cancer GI Medical History: Reports: Hepatitis - 1961 Denies: Cirrhosis, Crohn's Disease, Gastroesophageal Reflux Disease, Hiatal Hernia, Ulcerative Colitis Musculoskeltal Medical History: Reports: Arthritis Denies: Fibromyalgia Skin Medical History: Reports: None Denies: Eczema, Psoriasis Psychiatric Medical History: Reports: None Denies: Alcohol Dependency, Bipolar Disorder, Dementia, Depression, Post T raumatic Stress Disorder, Substance Abuse, Tobacco Dependency Traumatic Medical History: Reports: None Hematology: Reports: Anemia Denies: Bleeding Tendencies Infectious Medical History: Reports: None Denies: HIV Past Surgical History Past Surgical History: Reports: Appendectomy - 1949, Cholecystectomy - open jovi, post-op dehiscence, Hysterectomy, Knee Replacement, Orthopedic Surgery - Left Knee Sx, Right Knee Sx x 2, Back Sx (MILD), Pacemaker - AICD Denies: Section, Colostomy, Coronary Artery Bypass Graft, Gastric Bypass Surgery, Herniorrhaphy, Mastectomy, Tonsillectomy, Tubal Ligation Social History Lives with: Family, Other - She lives in a separate suite at her granddaughter's house Smoking Status: Former Smoker Electronic Cigarette use?: No Frequency of Alcohol Use: None Hx Recreational Drug Use: No Drugs: None Hx Prescription Drug Abuse: No - Advance Directive Resuscitation Status: Full Code Family History Family History: Arthritis, CAD, CVA, Hyperlipidemia, Hypertension, Malignancy. denies: COPD, DM, Thyroid Disfunction Parental Family History Reviewed: Yes Children Family History Reviewed: Yes Sibling(s) Family History Reviewed.: Yes Medication/Allergy Home Medications: Acetaminophen [Tylenol Extra Strength 500 mg Tablet] 1,000 mg PO Q6HP PRN 10/21/13 Cholecalciferol (Vitamin D3) [Vitamin D3 1000 Unit Tablet] 1,000 unit PO DAILY 10/21/13 Nortriptyline HCl [Pamelor 25 mg Capsule] 25 mg PO DAILY 10/21/13 Pravastatin Sodium [Pravachol] 40 mg PO QHS 10/21/13 Diclofenac Sodium [Voltaren] 100 gm TP DAILYP PRN 01/10/15 [place]-3 Fatty Acids/Fish Oil [[place] 3 Fish Oil Softgel] 1 each PO DAILY 01/10/15 Carvedilol [Coreg 12.5 mg Tablet] 12.5 mg PO Q12 03/19/15 Fexofenadine HCl [Allergy Relief] 60 mg PO BID 03/19/15 Allopurinol [Zyloprim 100 mg Tablet] 100 mg PO DAILY 04/11/20 Apixaban [Eliquis 5 mg Tablet] 5 mg PO Q12 04/11/20 Hydrocodone/Acetaminophen [[place] 5-325 mg Tablet] 1 tab PO Q8HP PRN 04/11/20 Nitroglycerin [Nitrostat 0.4 mg (1/150 Gr) Tabs 25/Bottle] 1 tab SL Q5MP PRN 04/11/20 Allergies/Adverse Reactions: Sulfa (Sulfonamide Antibiotics) Allergy (Intermediate, Verified 12/25/13 14:12) Generalized rash codeine [Codeine] Allergy (Verified 01/10/15 10:16) Physical Exam Vital Signs: Temp Pulse Resp BP Pulse Ox 98.9 F 18 175/63 H 96 04/11/20 05:01 04/11/20 07:32 04/11/20 07:32 04/11/20 07:32 Intake & Output 04/10/20 04/11/20 04/12/20 06:59 06:59 06:59 Weight 108.862 kg Results Laboratory Results: 04/10/20 21:12 04/11/20 02:05 04/10/20 04/10/20 04/10/20 21:12 21:12 22:56 WBC 6.9 RBC 3.46 L Hgb 11.4 L Hct 34.0 L MCV 98 H MCH 32.9 MCHC 33.5 RDW 14.6 H Plt Count 272 Seg Neutrophils % 63.1 Sodium 133.7 L 132.6 L Potassium 6.1 H* 6.2 H* Chloride 104 107 Carbon Dioxide 25 22 Anion Gap 5 4 L BUN 48 H 47 H Creatinine 1.51 H 1.47 H Est GFR ( Amer) 39 L 41 L Glucose 104 105 Calcium 10.1 10.5 H Magnesium 2.1 Total Bilirubin 0.3 AST 20 Alkaline Phosphatase 78 Total Protein 6.1 L Albumin 3.6 04/11/20 02:05 WBC RBC Hgb Hct MCV MCH MCHC RDW Plt Count Seg Neutrophils % Sodium 133.6 L Potassium 4.8 D Chloride 104 Carbon Dioxide 22 Anion Gap 8 BUN 43 H Creatinine 1.39 H Est GFR ( Amer) 43 L Glucose 195 H Calcium 11.6 H Magnesium Total Bilirubin AST Alkaline Phosphatase Total Protein Albumin 04/10/20 04/10/20 04/10/20 21:12 21:12 22:56 Creatine Kinase 25 L CK-MB (CK-2) 0.55 Troponin I 0.016 0.013 04/11/20 02:05 Creatine Kinase CK-MB (CK-2) Troponin I 0.014 Impressions: Chest X-Ray 04/10/20 19:59 IMPRESSION: Mild dependent atelectasis. Chronic changes, no adverse change. Interval revision of the pacer defibrillator. 04/10/20 21:12 04/11/20 02:05 MCV 98 fl (80-97) H 04/10/20 21:12 MCH 32.9 pg (27.0-33.4) 04/10/20 21:12 MCHC 33.5 g/dL (32.0-36.0) 04/10/20 21:12 RDW 14.6 % (11.5-14.0) H 04/10/20 21:12 Seg Neutrophils % 63.1 % (42-78) 04/10/20 21:12 Chloride 104 mmol/L (98-107) 04/11/20 02:05 Carbon Dioxide 22 mmol/L (22-30) 04/11/20 02:05 Anion Gap 8 (5-19) 04/11/20 02:05 Est GFR ( Amer) 43 (>60) L 04/11/20 02:05 Glucose 195 mg/dL (75-110) H 04/11/20 02:05 Calcium 11.6 mg/dL (8.4-10.2) H 04/11/20 02:05 Magnesium 2.1 mg/dL (1.6-2.3) 04/10/20 22:56 Total Bilirubin 0.3 mg/dL (0.2-1.3) 04/10/20 21:12 AST 20 U/L (14-36) 04/10/20 21:12 Alkaline Phosphatase 78 U/L (38-126) 04/10/20 21:12 Total Protein 6.1 g/dL (6.3-8.2) L 04/10/20 21:12 Albumin 3.6 g/dL (3.5-5.0) 04/10/20 21:12 04/10/20 04/10/20 04/10/20 21:12 21:12 22:56 Creatine Kinase 25 L CK-MB (CK-2) 0.55 Troponin I 0.016 0.013 04/11/20 02:05 Creatine Kinase CK-MB (CK-2) Troponin I 0.014 Current Medication List Generic Name Dose Route Start Last Admin Trade Name Freq PRN Reason Stop Dose Admin Acetaminophen 650 mg 04/11/20 03:04 Tylenol 325 Mg Tablet PO 05/11/20 03:03 Q4HP PRN For headache, pain or fever Al Hydrox/Mg Hydrox/Simethicone 30 ml 04/11/20 02:52 Maalox Plus Susp 30 Udcup PO 05/11/20 02:51 Q6HP PRN HEARTBURN Docusate Sodium 100 mg 04/11/20 10:00 Colace 100 Mg Capsule PO 05/11/20 09:59 BID MARCIO Guaifenesin 200 mg 04/11/20 03:04 Robitussin Syrup 200 Mg/10 Ml Ud Cup PO 05/11/20 03:03 Q4HP PRN COUGH Heparin Sodium (Porcine) 5,000 unit 04/11/20 06:00 04/11/20 06:55 Heparin Inj 5,000 Units/Ml 1 Ml Vial SUBCUT 05/11/20 05:59 5,000 unit Q8 MARCIO Administration Lactated Ringer's 1,000 mls @ 125 mls/hr 04/11/20 02:52 Lactated Ringers 1000 Ml Iv Soln IV CONTINUOUS PRN THIS MED IS NOT "PRN" Levalbuterol HCl 0.63 mg 04/11/20 03:06 Xopenex Neb 0.63 Mg/3 Ml Ampul NEB 05/11/20 03:05 RTQ2HP PRN SHORTNESS OF BREATH Lorazepam 1 mg 04/11/20 03:04 Ativan Inj 2 Mg/1 Ml Vial IV 04/18/20 03:03 Q4HP PRN ANXIETY/AGITATION Magnesium Hydroxide 30 ml 04/11/20 02:52 Milk Of Magnesia 30 Ml Udcup PO 05/11/20 02:51 DAILYP PRN FOR CONSTIPATION Melatonin 5 mg 04/11/20 03:04 Melatonin 5 Mg Tablet PO 05/11/20 03:03 QHS PRN SLEEP OR INSOMNIA Morphine Sulfate 2 - 4 mg 04/11/20 03:04 Morphine 10 Mg/Ml Inj IV 04/18/20 03:03 Q2HP PRN See protocol Protocol Nitroglycerin 1 tab 04/11/20 03:04 Nitrostat 0.4 Mg (1/150 Gr) Tabs 25/Bottle SL 05/11/20 03:03 Q5MP PRN FOR CHEST PAIN Ondansetron HCl 4 mg 04/11/20 02:52 Zofran Inj/Pf 4 Mg/2 Ml Sdv IV 05/11/20 02:51 Q4HP PRN FOR NAUSEA/VOMITING Pantoprazole Sodium 40 mg 04/11/20 06:00 04/11/20 06:[address] Tablet PO 05/11/20 05:59 40 mg Q6AM MARCIO Administration Sodium Chloride 2.5 ml 04/11/20 06:00 04/11/20 06:55 Saline Flush 2.5 Ml Monoject Prefil Syrin IV 05/11/20 05:59 2.5 ml Q8 MARCIO Administration Discontinued Medications Generic Name Dose Route Start Last Admin Trade Name Freq PRN Reason Stop Dose Admin Calcium Gluconate 1,000 mg 04/11/20 00:01 04/11/20 01:24 Calcium Gluconate Inj 1000 Mg/10 Ml IV 04/11/20 00:02 1,000 mg NOW ONE Administration Dextrose 25 gm 04/11/20 00:01 04/11/20 01:25 Dextrose Inj 50% Syringe (25 Gm/50 Ml) IV 04/11/20 00:02 25 gm NOW ONE Administration Insulin Human Regular 10 unit 04/11/20 00:01 04/11/20 01:32 Humulin R (Pyxis) Insulin 100 Unit/Ml 3ml IV 04/11/20 00:02 10 unit NOW ONE Administration Sodium Polystyrene Sulfonate 30 gm 04/11/20 01:06 04/11/20 01:32 Kayexalate 15 Gm/60 Ml Susp 60 Ml PO 04/11/20 01:07 30 gm NOW ONE Administration Assessment & Plan - Diagnosis (1) Chest pain Qualifiers: Chest pain type: unspecified Qualified Code(s): R07.9 - Chest pain, unspecified Is this a current diagnosis for this admission?: Yes Plan: The patient actually had more epigastric pain than chest pain. She is tender to the epigastric area which actually reproduces her index symptoms. Her cardiac enzymes have been normal. Unfortunately she is a very poor historian and had be en feeling "not right". Recommendations: -Given her age and cardiac risk factors, we will admit the patient for observation for at least 24 hours. -Repeat echocardiogram assess for structural heart disease and other causes of chest pain. -Restart outpatient medications. (2) Heart failure with reduced ejection fraction Plan: She is at her baseline and without evidence of heart failure exacerbation at this point. Recommendations: -Continue with outpatient medical regimen. (3) Hypertension Qualifiers: Hypertension type: essential hypertension Qualified Code(s): I10 - Essential (primary) hypertension Is this a current diagnosis for this admission?: Yes Plan: Her blood pressure had been above goal in the emergency room. Recommendations: -Restart outpatient medical regimen. -Continue with clinical follow-up with up titration of medications as indicated by blood pressure readings. (4) Hyperlipidemia Qualifiers: Hyperlipidemia type: unspecified Qualified Code(s): E78.5 - Hyperlipidemia, unspecified Is this a current diagnosis for this admission?: Yes Plan: Her most recent LDL in November 2018 was at goal at 65 with normal LFTs. Recommendations -Continue with current medical management. -Continue to follow-up with primary care provider. (5) Paroxysmal atrial fibrillation Plan: She is now anticoagulated with low dose was given her renal dysfunction. Recommendations: -Continue with current medical management for now.
[2020-04-11] MEDS ORDERED: HYDROCODONE/ACETAMINOPHEN 5-325 MG TABLET PO PRN (12:41)
[2020-04-11 15:15] LABS: ANION GAP 7 (5-19); BLOOD UREA NITROGEN 33 mg/dL (7-20); CARBON DIOXIDE 21 mmol/L (22-30); CHLORIDE 107 mmol/L (98-107); GLUCOSE 109 mg/dL (75-110)
[2020-04-11 15:32] LABS: CREATINE KINASE MB 0.79 ng/mL (<4.55); TROPONIN I 0.02 ng/mL
[2020-04-11] MEDS ORDERED: [UNRECOGNIZED DRUG - REMARK] PO SCH (18:00)
[2020-04-11 20:56] LABS: CREATINE KINASE MB 0.77 ng/mL (<4.55); TROPONIN I 0.022 ng/mL
[2020-04-11] MEDS: CARVEDILOL 12.5 MG TABLET PO SCH (21:27)
[2020-04-11] MEDS: APIXABAN 2.5 MG TABLET PO SCH (21:27)
[2020-04-11] MEDS: ACETAMINOPHEN 325 MG TABLET PO PRN (21:28)
[2020-04-11] MEDS ORDERED: (PENDING PHARMACY ID) (Pravastatin Sodium [Pravachol] 40 MG) PO SCH (22:00)
[2020-04-11] MEDS ORDERED: APIXABAN 5 MG TABLET PO SCH ×2 (22:00)
[2020-04-11] MEDS ORDERED: ATORVASTATIN CALCIUM 10 MG TABLET PO SCH (22:00)
--- NOTE | 2020-04-11 22:37 | Progress Note ---
Provider Note Provider Note: Patient was seen, briefly, this afternoon while still in the emergency department. Daughter was present. Patient is A&Ox4, pleasant, but unable to provide much details regarding her presentation to the emergency department. Daughter provides details. Currently, she is feeling well and chest pain free. No further episodes of discomfort. Denies dyspnea, orthopnea, and cough. Have seen their established car sweeper, Dr. Guo, who recommended continued observation but no additional cardiac workup. Overnight events, vital signs, lab results, imaging, EKG, H&P, and orders reviewed. Agree with plan of care as established by previous provider. In addition, home medications have been reconciled and resumed where appropriate. Have discontinued Ativan and decreased morphine dose and availability.
[2020-04-12] MEDS: RINGERS SOLUTION,LACTATED 1,000 ML IV PRN (04:14)
[2020-04-12] MEDS: PANTOPRAZOLE SODIUM 40 MG TABLET.DR PO SCH (05:42)
[2020-04-12 06:18] LABS: HEMATOCRIT 30.5 % (36.0-47.0); HEMOGLOBIN 10.4 g/dL (12.0-15.5); MEAN CORPUSCULAR HGB CONC 34.2 g/dL (32.0-36.0); MEAN CORPUSCULAR VOLUME 96 fl (80-97); PLATELET COUNT 225 10^3/uL (150-450); RED BLOOD COUNT 3.16 10^6/uL (3.72-5.28); RED CELL DISTRIBUTION WIDTH 14.5 % (11.5-14.0); WHITE BLOOD COUNT 4.8 10^3/uL (4.0-10.5)
[2020-04-12 06:42] LABS: BLOOD UREA NITROGEN 26 mg/dL (7-20); CALCIUM 9.7 mg/dL (8.4-10.2); GLUCOSE 98 mg/dL (75-110)
[2020-04-12 06:47] LABS: CARBON DIOXIDE 26 mmol/L (22-30); CHLORIDE 107 mmol/L (98-107)
[2020-04-12 06:48] LABS: ANION GAP 2 (5-19)
[2020-04-12] MEDS: CARVEDILOL 12.5 MG TABLET PO SCH (09:35)
[2020-04-12] MEDS: APIXABAN 2.5 MG TABLET PO SCH (09:35)
[2020-04-12] MEDS: ACETAMINOPHEN 325 MG TABLET PO PRN (09:36)
[2020-04-12] MEDS: DOCUSATE SODIUM 100 MG CAPSULE PO SCH (09:42)
[2020-04-12] MEDS ORDERED: ALLOPURINOL 100 MG TABLET PO SCH (10:00)
[2020-04-12] MEDS ORDERED: (PENDING PHARMACY ID) (Omega-3 Fatty Acids/Fish Oil [Omega 3 Fish Oil Softgel] 1 EACH) PO SCH (10:00)
[2020-04-12] MEDS ORDERED: NORTRIPTYLINE HCL 25 MG CAPSULE PO SCH (10:00)
[2020-04-12] MEDS ORDERED: CHOLECALCIFEROL (D3) 1,000 UNIT (25 MCG) TABLET PO SCH (10:00)
[2020-04-12] MEDS ORDERED: LORATADINE 10 MG TABLET PO SCH (10:00)
[2020-04-12] MEDS ORDERED: OMEGA-3 ACID ETHYL ESTERS 1 GM CAPSULE PO SCH (10:00)
--- NOTE | 2020-04-12 10:40 | PDOC PROGRESS REPORT ---
Subjective Progress Note for:: 04/12/20 Subjective:: GEETHA ABDUL is an 89-year-old female with history of heart failure with reduced ejection fraction estimated to be between 10 and 20% on echocardiogram on 01/07/17, hypertension, hyperlipidemia and ICD placement who is consulted to our service for evaluation of chest pain. The patient had been in her usual state of health until approximately 2 days ago when she began to have intermittent episodes of epigastric/lower chest pain. Unfortunately the patient is a very poor historian and cannot provide further details other than she felt as sharp pain in the epigastric region lasting for a few minutes at a time associated with not feeling well. There was no radiation of the pain and there was no associated shortness of breath or diaphoresis. The patient does not remember how long the discomfort last but it is not triggered by physical activities. Her work-up in the emergency room has been negative with detectable but indeterminate troponins and no evidence of significant pathology on chest x- ray. She is currently asymptomatic. 04/12/2020: The patient had an uneventful night and denies chest pain, shortness of breath, TONY, PND, palpitations, syncope and presyncope, she is found resting in bed in no distress with her daughter at the bedside. Her telemetry shows that intermittently AV paced rhythm with one episode of nonsustained V. tach lasting 11 beats. This was asymptomatic. She denies recurrence of index symptoms. Physical exam on 04/12/2020: GENERAL: Pleasant and conversational. Oriented x3 with normal mood. Not in acute distress. Well groomed and well developed. HEENT: Normocephalic, atraumatic. Pupils equal. Sclerae anicteric. Oropharynx moist. NECK: No JVD. No carotid bruits. LUNGS: Clear to auscultation bilaterally. Normal respiratory effort without the use of accessory muscles or intercostal retractions. CARDIOVASCULAR: Regular rate and rhythm, normal S1 and S2 without murmurs, rubs, or gallops. PMI not displaced. ABDOMEN: No tenderness to palpation. No bruit. No splenomegaly or hepatomegaly. No abdominal aorta bruit noted. EXTREMITIES: No edema, no cyanosis, no clubbing. +2 pulses femoral and pedal pulses bilaterally. SKIN: No lesions or rashes. MUSCULOSKELETAL: No chest tenderness to palpation. NEUROLOGIC: Nonfocal. No gross sensory or motor deficits bilateral upper or lower extremities. Outpatient medications: 1. Allopurinol 100 MG Oral Tablet; TAKE ONE TABLET BY MOUTH DAILY 2. Carvedilol 12.5 MG Oral Tablet; TAKE 1 TABLET TWICE DAILY WITH MEALS 3. Centrum Silver Oral Tablet 4. Eliquis 2.5 MG Oral Tablet; TAke 1 tablet twice a day 5. Fexofenadine HCl - 60 MG Oral Tablet; TAKE 1 TABLET EVERY 12 HOURS DAILY 6. HYDROcodone-Acetaminophen 7.5-325 MG Oral Tablet 7. Nitrofurantoin Monohyd Macro 100 MG Oral Capsule; TAKE 1 CAPSULE EVERY 12 HOURS DAILY 8. Nitroglycerin 0.4 MG Sublingual Tablet Sublingual; DISSOLVE 1 TABLET UNDER TONGUE NEEDED FORCHEST PAIN EVERY 5 MINUTES UP TO 3 DOSES 9. Nortriptyline HCl - 25 MG Oral Capsule; TAKE 1 CAPSULE AT BEDTIME 10. [place]-3 Fish Oil 1000 MG Oral Capsule; TAKE 1 CAPSULE DAILY 11. Pravastatin Sodium 40 MG Oral Tablet; TAKE 1 TABLET AT BEDTIME 12. Prevacid 30 MG Oral Capsule Delayed Release; TAKE 1 CAPSULE EVERY MORNING DAILY 13. Super B Complex TABS 14. Tylenol Extra Strength 500 MG Oral Tablet 15. Vitamin D3 25 MCG (1000 UT) Oral Capsule; TAKE DIRECTED 16. Voltaren 1 % GEL Cardiac studies: Echocardiogram on 01/07/17: -Very limited study. -Left ventricle is mildly dilated. -Severe left ventricular global hypokinesis. -Severe LV dysfunction with EF between 10-20%. -Moderate left atrial enlargement. -A device lead is present in the right ventricle. -Valvular structures are difficult to evaluate however the mitral valve apparatus appears to be mildly calcified without stenosis. -Mild TR, mild AI. -Cannot completely rule out a degree of pulmonary hypertension given the eccentricity of the jet. Reason For Visit: HYPERKALEMIA,EPIGASTRIC/CHEST PAIN Physical Exam Vital Signs: Temp Pulse Resp BP Pulse Ox 98.2 F 60 18 129/47 H 94 04/11/20 23:28 04/12/20 02:00 04/11/20 23:28 04/11/20 23:28 04/11/20 23:28 Intake & Output 04/11/20 04/12/20 04/13/20 06:59 06:59 06:59 Intake Total 2100 Balance 2100 Weight 108.862 kg 108.5 kg Results Laboratory Results: 04/12/20 05:24 04/12/20 05:24 04/11/20 04/11/20 04/12/20 02:05 14:15 05:24 WBC 4.8 RBC 3.16 L Hgb 10.4 L Hct 30.5 L MCV 96 MCH 33.0 MCHC 34.2 RDW 14.5 H Plt Count 225 Sodium 134.7 L Potassium 5.0 Chloride 107 Carbon Dioxide 21 L Anion Gap 7 BUN 33 H Creatinine 1.17 Est GFR ( Amer) 53 L Glucose 109 Calcium 10.0 Magnesium Lipase 167.6 TSH 04/12/20 04/12/20 05:24 05:24 WBC RBC Hgb Hct MCV MCH MCHC RDW Plt Count Sodium 134.6 L Potassium 5.0 Chloride 107 Carbon Dioxide 26 Anion Gap 2 L BUN 26 H Creatinine 1.12 Est GFR ( Amer) 56 L Glucose 98 Calcium 9.7 Magnesium 1.7 Lipase TSH 1.54 04/10/20 04/10/20 04/10/20 21:12 21:12 22:56 Creatine Kinase 25 L CK-MB (CK-2) 0.55 Troponin I 0.016 0.013 04/11/20 04/11/20 04/11/20 02:05 07:59 07:59 Creatine Kinase 23 L CK-MB (CK-2) 0.78 Troponin I 0.014 0.018 04/11/20 04/11/20 04/11/20 14:15 14:15 19:55 Creatine Kinase 24 L 29 L CK-MB (CK-2) 0.79 Troponin I 0.020 04/11/20 20:00 Creatine Kinase CK-MB (CK-2) 0.77 Troponin I 0.022 Impressions: Chest X-Ray 04/10/20 19:59 IMPRESSION: Mild dependent atelectasis. Chronic changes, no adverse change. Interval revision of the pacer defibrillator. 04/12/20 05:24 04/12/20 05:24 MCV 96 fl (80-97) 04/12/20 05:24 MCH 33.0 pg (27.0-33.4) 04/12/20 05:24 MCHC 34.2 g/dL (32.0-36.0) 04/12/20 05:24 RDW 14.5 % (11.5-14.0) H 04/12/20 05:24 Seg Neutrophils % 63.1 % (42-78) 04/10/20 21:12 Chloride 107 mmol/L (98-107) 04/12/20 05:24 Carbon Dioxide 26 mmol/L (22-30) 04/12/20 05:24 Anion Gap 2 (5-19) L 04/12/20 05:24 Est GFR ( Amer) 56 (>60) L 04/12/20 05:24 Glucose 98 mg/dL (75-110) 04/12/20 05:24 Calcium 9.7 mg/dL (8.4-10.2) 04/12/20 05:24 Magnesium 1.7 mg/dL (1.6-2.3) 04/12/20 05:24 Total Bilirubin 0.3 mg/dL (0.2-1.3) 04/10/20 21:12 AST 20 U/L (14-36) 04/10/20 21:12 Alkaline Phosphatase 78 U/L (38-126) 04/10/20 21:12 Total Protein 6.1 g/dL (6.3-8.2) L 04/10/20 21:12 Albumin 3.6 g/dL (3.5-5.0) 04/10/20 21:12 Lipase 167.6 U/L (23-300) 04/11/20 02:05 TSH 1.54 uIU/mL (0.47-4.68) 04/12/20 05:24 04/10/20 04/10/20 04/10/20 21:12 21:12 22:56 Creatine Kinase 25 L CK-MB (CK-2) 0.55 Troponin I 0.016 0.013 04/11/20 04/11/20 04/11/20 02:05 07:59 07:59 Creatine Kinase 23 L CK-MB (CK-2) 0.78 Troponin I 0.014 0.018 04/11/20 04/11/20 04/11/20 14:15 14:15 19:55 Creatine Kinase 24 L 29 L CK-MB (CK-2) 0.79 Troponin I 0.020 04/11/20 20:00 Creatine Kinase CK-MB (CK-2) 0.77 Troponin I 0.022 Current Medication List Generic Name Dose Route Start Last Admin Trade Name Freq PRN Reason Stop Dose Admin Acetaminophen 650 mg 04/11/20 03:04 04/11/20 21:28 Tylenol 325 Mg Tablet PO 05/11/20 03:03 650 mg Q4HP PRN Administration For headache, pain or fever Hydrocodone Bitart/Acetaminophen 1 tab 04/11/20 12:41 [place] 5-325 Mg Tablet PO 04/18/20 12:40 Q8HP PRN FOR PAIN Al Hydrox/Mg Hydrox/Simethicone 30 ml 04/11/20 02:52 Maalox Plus Susp 30 Udcup PO 05/11/20 02:51 Q6HP PRN HEARTBURN Allopurinol 100 mg 04/12/20 10:00 Zyloprim 100 Mg Tablet PO 05/12/20 09:59 DAILY MARCIO Apixaban 2.5 mg 04/11/20 22:00 04/11/20 21:27 Eliquis 2.5 Mg Tablet PO 05/11/20 21:59 2.5 mg Q12 MARCIO Administration Atorvastatin Calcium 10 mg 04/11/20 22:00 04/11/20 21:27 Lipitor 10 Mg Tablet PO 05/11/20 21:59 10 mg QHS MARCIO Administration Carvedilol 12.5 mg 04/11/20 22:00 04/11/20 21:27 Coreg 12.5 Mg Tablet PO 05/11/20 21:59 12.5 mg Q12 MARCIO Administration Cholecalciferol 1,000 unit 04/12/20 10:00 Vitamin D3 1000 Unit Tablet PO 05/12/20 09:59 DAILY MARCIO Docusate Sodium 100 mg 04/11/20 10:00 04/11/20 18:00 Colace 100 Mg Capsule PO 05/11/20 09:59 Not Given BID MARCIO Guaifenesin 200 mg 04/11/20 03:04 Robitussin Syrup 200 Mg/10 Ml Ud Cup PO 05/11/20 03:03 Q4HP PRN COUGH Levalbuterol HCl 0.63 mg 04/11/20 03:06 Xopenex Neb 0.63 Mg/3 Ml Ampul NEB 05/11/20 03:05 RTQ2HP PRN SHORTNESS OF BREATH Loratadine 10 mg 04/12/20 10:00 Claritin 10 Mg Tablet PO 05/12/20 09:59 DAILY MARCIO Magnesium Hydroxide 30 ml 04/11/20 02:52 Milk Of Magnesia 30 Ml Udcup PO 05/11/20 02:51 DAILYP PRN FOR CONSTIPATION Melatonin 5 mg 04/11/20 23:00 Melatonin 5 Mg Tablet PO 05/11/20 03:03 HSP PRN SLEEP OR INSOMNIA Morphine Sulfate 2 mg 04/11/20 22:34 Morphine 10 Mg/Ml Inj IV 04/18/20 22:32 Q4HP PRN chest pain unrelieved by nitro Protocol Nitroglycerin 1 tab 04/11/20 03:04 Nitrostat 0.4 Mg (1/150 Gr) Tabs 25/Bottle SL 05/11/20 03:03 Q5MP PRN FOR CHEST PAIN Nortriptyline HCl 25 mg 04/12/20 10:00 Pamelor 25 Mg Capsule PO 05/12/20 09:59 DAILY MARCIO Rtaxk-8-Mlkc Ethyl Esters 1 gm 04/12/20 10:00 Lovaza 1 Gm Capsule PO 05/12/20 09:59 DAILY MARCIO Ondansetron HCl 4 mg 04/11/20 02:52 Zofran Inj/Pf 4 Mg/2 Ml Sdv IV 05/11/20 02:51 Q4HP PRN FOR NAUSEA/VOMITING Pantoprazole Sodium 40 mg 04/11/20 06:00 04/12/20 05:[address] Tablet PO 05/11/20 05:59 40 mg Q6AM MARCIO Administration Sodium Chloride 2.5 ml 04/11/20 06:00 04/12/20 05:42 Saline Flush 2.5 Ml Monoject Prefil Syrin IV 05/11/20 05:59 Not Given Q8 MARCIO Discontinued Medications Generic Name Dose Route Start Last Admin Trade Name Freq PRN Reason Stop Dose Admin Apixaban 5 mg 04/11/20 22:00 Eliquis 5 Mg Tablet PO 05/11/20 21:59 Q12 MARCIO Calcium Gluconate 1,000 mg 04/11/20 00:01 04/11/20 01:24 Calcium Gluconate Inj 1000 Mg/10 Ml IV 04/11/20 00:02 1,000 mg NOW ONE Administration Dextrose 25 gm 04/11/20 00:01 04/11/20 01:25 Dextrose Inj 50% Syringe (25 Gm/50 Ml) IV 04/11/20 00:02 25 gm NOW ONE Administration Heparin Sodium (Porcine) 5,000 unit 04/11/20 06:00 04/11/20 06:55 Heparin Inj 5,000 Units/Ml 1 Ml Vial SUBCUT 05/11/20 05:59 5,000 unit Q8 MARCIO Administration Lactated Ringer's 1,000 mls @ 125 mls/hr 04/11/20 02:52 04/12/20 04:14 Lactated Ringers 1000 Ml Iv Soln IV 125 mls/hr CONTINUOUS PRN Administration THIS MED IS NOT "PRN" Insulin Human Regular 10 unit 04/11/20 00:01 04/11/20 01:32 Humulin R (Pyxis) Insulin 100 Unit/Ml 3ml IV 04/11/20 00:02 10 unit NOW ONE Administration Lorazepam 1 mg 04/11/20 03:04 Ativan Inj 2 Mg/1 Ml Vial IV 04/18/20 03:03 Q4HP PRN ANXIETY/AGITATION Melatonin 5 mg 04/11/20 03:04 04/11/20 21:27 Melatonin 5 Mg Tablet PO 05/11/20 03:03 5 mg QHS PRN Administration SLEEP OR INSOMNIA Morphine Sulfate 2 - 4 mg 04/11/20 03:04 04/11/20 14:30 Morphine 10 Mg/Ml Inj IV 04/18/20 03:03 3 mg Q2HP PRN Administration See protocol Protocol Sodium Polystyrene Sulfonate 30 gm 04/11/20 01:06 04/11/20 01:32 Kayexalate 15 Gm/60 Ml Susp 60 Ml PO 04/11/20 01:07 30 gm NOW ONE Administration Assessment & Plan - Diagnosis (1) Chest pain Qualifiers: Chest pain type: unspecified Qualified Code(s): R07.9 - Chest pain, unspecified Is this a current diagnosis for this admission?: Yes Plan: The patient actually had more epigastric pain than chest pain. She denies recurrence of index symptoms and feels much better. Her cardiac enzymes is tender to the epigastric area which actually reproduces her index symptoms. Her cardiac troponin have been detectable but in the indeterminate range. She is ready to discharge from the cardiovascular standpoint. I will interpret her echocardiogram once it is available. Recommendations: -The patient may be discharged home from the cardiovascular standpoint, I will arrange for hospital follow-up in the office. (2) Heart failure with reduced ejection fraction Plan: She is at her baseline and without evidence of heart failure exacerbation at this point. Recommendations: -Continue with outpatient medical regimen. (3) Hypertension Qualifiers: Hypertension type: essential hypertension Qualified Code(s): I10 - Essential (primary) hypertension Is this a current diagnosis for this admission?: Yes Plan: Her blood pressure had been is now at goal. Recommendations: -Continue with outpatient medical regimen. -Outpatient follow-up as scheduled. (4) Hyperlipidemia Qualifiers: Hyperlipidemia type: unspecified Qualified Code(s): E78.5 - Hyperlipidemia, unspecified Is this a current diagnosis for this admission?: Yes Plan: Her most recent LDL in November 2018 was at goal at 65 with normal LFTs. Recommendations -Continue with current medical management. -Continue to follow-up with primary care provider. (5) Paroxysmal atrial fibrillation Plan: She is now anticoagulated with low dose was given her renal dysfunction. Recommendations: -Continue with current medical management for now.
[2020-04-12 12:30] VITALS: BP 129/42
--- NOTE | 2020-04-15 09:06 | PDOC DISCHARGE SUMMARY ---
Impression - Admit/DC Date/PCP Admission Date/Primary Care Provider: 04/11/20 02:14 KEYLA ARCHER MD Discharge Date: 04/12/20 - Discharge Diagnosis (1) Chest pain Is this a current diagnosis for this admission?: Yes (2) Chronic kidney disease, stage III (moderate) Is this a current diagnosis for this admission?: Yes (3) Hyperkalemia Is this a current diagnosis for this admission?: Yes (4) Hyperlipidemia Is this a current diagnosis for this admission?: Yes (5) Hypertension Is this a current diagnosis for this admission?: Yes (6) Presence of automatic cardioverter/defibrillator (AICD) Is this a current diagnosis for this admission?: Yes (7) Heart failure with reduced ejection fraction Is this a current diagnosis for this admission?: Yes (8) Paroxysmal atrial fibrillation Is this a current diagnosis for this admission?: Yes - Additional Information Resuscitation Status: Full Code Discharge Diet: Cardiac Discharge Activity: Activity As Tolerated, Balance Activity w/Rest Referrals: GILBERT GUO MD [ACTIVE PROVISIONAL STAFF] - 04/24/20 10:45 am KEYLA ARCHER MD [Primary Care Provider] - 04/19/20 11:00 am () Prescriptions: Apixaban [Eliquis 2.5 mg Tablet] 2.5 mg PO Q12 #60 tablet Pantoprazole Sodium [Protonix [address] Tablet] 20 mg PO QAM #30 tablet.dr Home Medications: Acetaminophen [Tylenol Extra Strength 500 mg Tablet] 1,000 mg PO Q6HP PRN 10/21/13 Cholecalciferol (Vitamin D3) [Vitamin D3 1000 Unit Tablet] 1,000 unit PO DAILY 10/21/13 Nortriptyline HCl [Pamelor 25 mg Capsule] 25 mg PO DAILY 10/21/13 Pravastatin Sodium [Pravachol] 40 mg PO QHS 10/21/13 Diclofenac Sodium [Voltaren] 100 gm TP DAILYP PRN 01/10/15 [place]-3 Fatty Acids/Fish Oil [[place] 3 Fish Oil Softgel] 1 each PO DAILY 01/10/15 Carvedilol [Coreg 12.5 mg Tablet] 12.5 mg PO Q12 03/19/15 Fexofenadine HCl [Allergy Relief] 60 mg PO BID 03/19/15 Allopurinol [Zyloprim 100 mg Tablet] 100 mg PO DAILY 04/11/20 Hydrocodone/Acetaminophen [[place] 5-325 mg Tablet] 1 tab PO Q8HP PRN 04/11/20 Nitroglycerin [Nitrostat 0.4 mg (1/150 Gr) Tabs 25/Bottle] 1 tab SL Q5MP PRN 04/11/20 Acetaminophen [Tylenol 325 mg Tablet] 650 mg PO Q4HP PRN tablet 04/12/20 Apixaban [Eliquis 2.5 mg Tablet] 2.5 mg PO Q12 #60 tablet 04/12/20 Pantoprazole Sodium [Protonix [address] Tablet] 20 mg PO QAM #30 tablet. 04/12/20 History of Present Illiness History of Present Illness: Per H&P by Dr. Ulloa: GEETHA ABDUL is a 89 year old female who presented emergency room with a 2-day history of epigastric/chest pain. She admits having pain each of the last 2 nights, waking with a severe constant sharp pain in her epigastrium radiating along the left costal margin to the anterior axillary line, for which she took nitroglycerin and received relief after resting for a few minutes. She associates her pain with general fatigue and weakness for the last 2 days since the first episode of pain. She also associates the pain with an episode of similar sharp pain today causing her to feel very dizzy and seeing stars which she attributed to her pacemaker-defibrillator firing. She denies other associated or accompanying signs and symptoms. She admits prior similar episodes. She has not identified any aggravating or ameliorating factors for her epigastric/chest pain. Hospital Course Hospital Course: She was admitted to the medical floor on continuous cardiac telemetry. She had no abnormal/acute findings by telemetry. Serial troponins were negative x6. Patient had no further episodes of chest discomfort. Per patient's daughter, her pain appeared to be related to food and epigastric in origin; request to start on PPI as this is similar to reflux discomfort that the patient's daughter has had in the past. Patient is agreeable. Therefore, she is discharged home on once daily low-dose Protonix. Cardiology was consulted and fortunately, the brain patient's primary operations and maintenance manager, Dr. Guo, was available for the consult. Per Dr. Guo, her chest discomfort appears to be more epigastric in origin as well. Dr. Guo reports that her CHF, hypertension, hyperlipidemia, PAF are all well controlled. He approves discharge to home with close follow-up in the office. Physical Exam Vital Signs: Temp Pulse Resp BP Pulse Ox 97.6 F 63 16 129/42 H 96 04/12/20 12:00 04/12/20 12:00 04/12/20 12:00 04/12/20 12:00 04/12/20 12:00 General appearance: PRESENT: no acute distress, cooperative, morbidly obese, well-developed, well-nourished Head exam: PRESENT: atraumatic, normocephalic Eye exam: PRESENT: conjunctiva pink, EOMI, PERRLA. ABSENT: scleral icterus Mouth exam: PRESENT: moist, tongue midline Respiratory exam: PRESENT: clear to auscultation jesus, symmetrical, unlabored. ABSENT: rales, rhonchi, wheezes Cardiovascular exam: PRESENT: irregular rhythm. ABSENT: diastolic murmur, rubs, systolic murmur Pulses: PRESENT: normal dorsalis pedis pul Vascular exam: PRESENT: normal capillary refill Extremities exam: PRESENT: full ROM. ABSENT: calf tenderness, clubbing, pedal edema Neurological exam: PRESENT: alert, awake, oriented to person, oriented to place, oriented to time, oriented to situation, CN II-XII grossly intact. ABSENT: motor sensory deficit Psychiatric exam: PRESENT: appropriate affect, normal mood. ABSENT: homicidal ideation, suicidal ideation Skin exam: PRESENT: dry, intact, warm. ABSENT: cyanosis, rash Results Laboratory Results: WBC 4.8 10^3/uL (4.0-10.5) 04/12/20 05:24 RBC 3.16 10^6/uL (3.72-5.28) L 04/12/20 05:24 Hgb 10.4 g/dL (12.0-15.5) L 04/12/20 05:24 Hct 30.5 % (36.0-47.0) L 04/12/20 05:24 MCV 96 fl (80-97) 04/12/20 05:24 MCH 33.0 pg (27.0-33.4) 04/12/20 05:24 MCHC 34.2 g/dL (32.0-36.0) 04/12/20 05:24 RDW 14.5 % (11.5-14.0) H 04/12/20 05:24 Plt Count 225 10^3/uL (150-450) 04/12/20 05:24 Lymph % (Auto) 24.3 % (13-45) 04/10/20 21:12 [place] % (Auto) 8.0 % (3-13) 04/10/20 21:12 Eos % (Auto) 4.3 % (0-6) 04/10/20 21:12 Baso % (Auto) 0.3 % (0-2) 04/10/20 21:12 Absolute Neuts (auto) 4.3 10^3/uL (1.7-8.2) 04/10/20 21:12 Absolute Lymphs (auto) 1.7 10^3/uL (0.5-4.7) 04/10/20 21:12 Absolute Monos (auto) 0.6 10^3/uL (0.1-1.4) 04/10/20 21:12 Absolute Eos (auto) 0.3 10^3/uL (0.0-0.6) 04/10/20 21:12 Absolute Basos (auto) 0.0 10^3/uL (0.0-0.2) 04/10/20 21:12 Seg Neutrophils % 63.1 % (42-78) 04/10/20 21:12 Sodium 134.6 mmol/L (137-145) L 04/12/20 05:24 Potassium 5.0 mmol/L (3.6-5.0) 04/12/20 05:24 Chloride 107 mmol/L (98-107) 04/12/20 05:24 Carbon Dioxide 26 mmol/L (22-30) 04/12/20 05:24 Anion Gap 2 (5-19) L 04/12/20 05:24 BUN 26 mg/dL (7-20) H 04/12/20 05:24 Creatinine 1.12 mg/dL (0.52-1.25) 04/12/20 05:24 Est GFR ( Amer) 56 (>60) L 04/12/20 05:24 Est GFR (MDRD) Non-Af 46 (>60) L 04/12/20 05:24 Glucose 98 mg/dL (75-110) 04/12/20 05:24 Calcium 9.7 mg/dL (8.4-10.2) 04/12/20 05:24 Magnesium 1.7 mg/dL (1.6-2.3) 04/12/20 05:24 Total Bilirubin 0.3 mg/dL (0.2-1.3) 04/10/20 21:12 Direct Bilirubin 0.2 mg/dL (0.0-0.4) 04/10/20 21:12 Neonat Total Bilirubin Not Reportable 04/10/20 21:12 Neonat Direct Bilirubin Not Reportable 04/10/20 21:12 Neonat Indirect Bili Not Reportable 04/10/20 21:12 AST 20 U/L (14-36) 04/10/20 21:12 ALT 14 U/L (<35) 04/10/20 21:12 Alkaline Phosphatase 78 U/L (38-126) 04/10/20 21:12 Creatine Kinase 29 U/L (30-135) L 04/11/20 19:55 CK-MB (CK-2) 0.77 ng/mL (<4.55) 04/11/20 20:00 Troponin I 0.022 ng/mL 04/11/20 20:00 Total Protein 6.1 g/dL (6.3-8.2) L 04/10/20 21:12 Albumin 3.6 g/dL (3.5-5.0) 04/10/20 21:12 Lipase 167.6 U/L (23-300) 04/11/20 02:05 TSH 1.54 uIU/mL (0.47-4.68) 04/12/20 05:24 04/10/20 04/10/20 04/11/20 21:12 22:56 02:05 CK-MB (CK-2) 0.55 Troponin I 0.016 0.013 0.014 04/11/20 04/11/20 04/11/20 07:59 14:15 20:00 CK-MB (CK-2) 0.78 0.79 0.77 Troponin I 0.018 0.020 0.022 Impressions: Chest X-Ray 04/10/20 19:59 IMPRESSION: Mild dependent atelectasis. Chronic changes, no adverse change. Interval revision of the pacer defibrillator. Plan Plan of Treatment: Patient is discharged home in stable condition, to the care of family members. She is advised to follow-up with her primary care provider within 1 week. Follow-up with her established operations and maintenance manager, Dr. Guo, as scheduled. Eat a cardiac diet. Take medications as prescribed. Return to the emergency department as needed for concerning symptoms. Time Spent: Greater than 30 Minutes Stroke Is this a Stroke Patient?: No Acute Heart Failure - Is this a Heart Failure Patient?: Yes Documentation of LVEF assessment?: Yes LVEF: LVEF Greater Than 40% Anticoagulant Therapy: Yes Discharged on Evidence-Based Beta Blockers: Yes Discharged on ARNI?: No-Document Contraindications Reason(s) not discharged on ARNI: Not previously tolerating ACEI or ARB Discharged on ARB?: No-document contraindications Reason(s) not Discharged on ARB: Other ARB Reason - Other: medications per cardiology Discharged on ACEI?: No, document contraindications Reason(s) not Discharged on ACEI: other ACEI Reason - Other: medications per cardiology For LVEF <35%, discharged on Aldosterone Antagonist?: N/A (LVEF > or = 35%) Follow-up Appointment scheduled within 7 days?: Yes
== END 2020-04-12 13:55 | disposition home or self-care (01) ==
LOC: ER 19:53 → EH 04-11 02:14 → 4W 04-11 17:37
PROVIDERS: ADMIT Emergency Medicine; ATTEND Registered Nurse
DX: R07.9 Chest pain, unspecified (principal); E87.5 Hyperkalemia; I13.0 Hypertensive heart and chronic kidney disease with heart failure and stage 1 through stage 4 chronic kidney disease, or unspecified chronic kidney disease; N18.3 Chronic kidney disease, stage 3 (moderate); I50.9 Heart failure, unspecified; E78.5 Hyperlipidemia, unspecified; I48.0 Paroxysmal atrial fibrillation; E66.01 Morbid (severe) obesity due to excess calories; I36.1 Nonrheumatic tricuspid (valve) insufficiency; I35.1 Nonrheumatic aortic (valve) insufficiency; D63.1 Anemia in chronic kidney disease; R10.13 Epigastric pain; M19.90 Unspecified osteoarthritis, unspecified site; Z95.810 Presence of automatic (implantable) cardiac defibrillator; Z79.01 Long term (current) use of anticoagulants; Z79.899 Other long term (current) drug therapy; Z87.891 Personal history of nicotine dependence; Z96.659 Presence of unspecified artificial knee joint; Z82.49 Family history of ischemic heart disease and other diseases of the circulatory system; Z88.6 Allergy status to analgesic agent; Z88.2 Allergy status to sulfonamides
CPT/HCPCS: 93005; 99285; 96372; 96374; 96375; 36415 ×3; 82553 ×2; 82550 ×2; 83690; 83735 ×2; 84443; 85025; 85027; 80048 ×2; 80053; 84484 ×2; 71045; 93010; G0378 ×3; A9270 ×19; J0610; J1644; J3490 ×2; J2270; J7120 ×2; J1815

== ENCOUNTER 2020-06-08 17:04 | Emergency (ER) | payer MEDICARE ==
--- NOTE | 2020-06-08 18:28 | ER Document Report ---
Entered by JAMES OSORIO SCRIBE 06/08/201817 Acting as scribe for:JACQUELYN MOREIRA MD ED Fall - General Chief Complaint: Fall Stated Complaint: FALL Time Seen by Provider: 06/08/20 18:05 Primary Care Provider: KEYLA ARCHER MD [Primary Care Provider] - Follow up as needed Mode of Arrival: Medic Information source: Patient Notes: This 89 year old female patient brought in by EMS from home presents to the today for evaluation of a fall that occurred just prior to arrival. Patient states that she ambulates with a walker and when she was leaving the bathroom, her wheel hit the transition strip and it threw her back, causing her to fall backwards and hit the back of her head on the tile floor. No LOC. Patient reports reproducible sternal chest wall pain. She is on Eliquis. TRAVEL OUTSIDE OF THE [place] IN LAST 30 DAYS: No - Related data Allergies/Adverse Reactions: Sulfa (Sulfonamide Antibiotics) Allergy (Intermediate, Verified 06/08/20 18:28) Generalized rash codeine [Codeine] Allergy (Verified 06/08/20 18:28) Past Medical History - General Information source: Patient, [facility] Records - Social History Smoking Status: Unknown if Ever Smoked Smoking Education Provided: No Family History: Reviewed & Not Pertinent, Arthritis, CAD, CVA, Hyperlipidemia, Hypertension, Malignancy - Past Medical History Cardiac Medical History: Reports: Hx Congestive Heart Failure - Last episode September 27, Hx Hypercholesterolemia, Hx Hypertension Pulmonary Medical History: Reports: Hx Bronchitis - tx'ed effectively with Abx (Rx 7-10 days), Hx Pneumonia - > 25 years ago, Hx Sleep Apnea - CPAP Qhs Dx'ed approx 10 years ago Renal/ Medical History: Reports: Hx 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 GI Medical History: Reports: Hx Hepatitis - 1961, Hx Colonoscopy, Hx Endoscopy Musculoskeletal Medical History: Reports Hx Arthritis, Reports Hx Musculoskeletal Deformity, Reports Hx Musculoskeletal Trauma Traumatic Medical History: Reports: Hx Fractures - RT tibial Fx 2011, denies surgical intervention, reports brace x 9 weeks Infectious Medical History: Reports: Hx Hepatitis - 1961 Past Surgical History: Reports: Hx Appendectomy - 1950, Hx Cardiac Surgery - pacemaker, Hx Cholecystectomy - open jovi, post-op dehiscence, Hx Hysterectomy, Hx Orthopedic Surgery - Left Knee Sx, Right Knee Sx x 2, Back Sx (MILD), Hx Pacemaker - AICD - Immunizations Hx Diphtheria, Pertussis, Tetanus Vaccination: No Hx Pneumococcal Vaccination: 09/15/08 Review of Systems - Review of Systems Constitutional: No symptoms reported EENT: No symptoms reported Cardiovascular: See HPI, Chest pain - reproducible Respiratory: No symptoms reported Gastrointestinal: No symptoms reported Genitourinary: No symptoms reported Female Genitourinary: No symptoms reported Musculoskeletal: No symptoms reported Skin: See HPI Hematologic/Lymphatic: No symptoms reported Neurological/Psychological: See HPI. denies: Lost consciousness -: Yes All other systems reviewed and negative Physical Exam - Vital signs Vitals: Temp Pulse Resp BP Pulse Ox 98.0 F 84 18 164/62 H 97 06/08/20 17:32 06/08/20 17:32 06/08/20 17:32 06/08/20 17:32 06/08/20 17:32 Interpretation: Normal - General General appearance: Alert In distress: None - HEENT Head: No: Atraumatic - Hematoma, right occipital region. No bleeding. Eyes: Normal Pupils: PERRL Mouth/Lips: Laceration - There is a minor laceration on the inner right upper lip that is not actively bleeding - Respiratory Respiratory status: No respiratory distress Chest status: Tender - Reproducible sternal and parasternal chest wall tenderness to palpation Breath sounds: Normal Chest palpation: Normal - Cardiovascular Rhythm: Regular Heart sounds: Normal auscultation Murmur: No Friction rub: No Gallop: None auscultated - Abdominal Inspection: Normal Distension: No distension Bowel sounds: Normal Tenderness: Nontender Organomegaly: No organomegaly - Back Back: Normal, Nontender - Extremities General lower extremity: Normal inspection Elbow: Other - Skin tear, left lateral elbow - Neurological Neuro grossly intact: Yes Orientation: AAOx4 Rowena Coma Scale Eye Opening: Spontaneous [place] Coma Scale Verbal: Oriented Rowena Coma Scale Motor: Obeys Commands Rowena Coma Scale Total: 15 - Psychological Associated symptoms: Normal affect, Normal mood - Skin Skin Temperature: Warm Skin Moisture: Dry Skin Color: Normal Course - Re-evaluation Re-evalutation: 06/08/20 19:17 Soft tissue windows on the CT scan of the head shows the right occipital hematoma there is also noted on physical exam. - Vital Signs Vital signs: Temp Pulse Resp BP Pulse Ox 98.0 F 84 18 164/62 H 97 06/08/20 17:32 06/08/20 17:32 06/08/20 17:32 06/08/20 17:32 06/08/20 17:32 - Diagnostic Test Radiology reviewed: Image reviewed, Reports reviewed - CT scans of the head neck and chest show chronic microvascular ischemic changes and chronic left maxillary sinus disease. Mild anterolisthesis of C3, degenerative disc disease, spondylosis, extensive facet arthropathy and no significant findings on no ncontrasted chest. Discharge - Discharge Clinical Impression: Anterior chest wall pain Contusion of occipital region of scalp Qualifiers: Encounter type: initial encounter Qualified Code(s): S00.03XA - Contusion of scalp, initial encounter Lip laceration Qualifiers: Encounter type: initial encounter Qualified Code(s): S01.511A - Laceration without foreign body of lip, initial encounter Skin tear of right elbow without complication Qualifiers: Encounter type: initial encounter Qualified Code(s): S51.011A - Laceration without foreign body of right elbow, initial encounter Condition: Stable Disposition: HOME, SELF-CARE Additional Instructions: Scalp Hematoma You have a scalp hematoma. This is a bump caused by blood underneath the scalp. This is a common injury, and usually causes only mild local pain or headache. There is no evidence of a skull fracture or of a brain injury. A scalp hematoma will usually disappear after a few days. Put cold packs on the swollen area for 20-30 minutes every 2-3 hours until the swelling improves. Use acetaminophen or ibuprofen for pain. Avoid aspirin because this may increase bleeding under the scalp. You may have a mild headache for a few days. Call the doctor or return if there is severe headache, confusion, personality changes, vomiting, severe dizziness, or difficulty with balance or coordination. Skin Tear Your wound is a skin tear. These wounds are difficult and sometimes impossible to suture because the skin is so fragile that it may not hold the sutures. The skin condition can be due to aging and sometimes medications. The best care for such skin tears is sometimes to not try to suture them. Rather, it is best to position the skin as closely as possible to its original location and apply a bandage that can remain in place for several days at a time and sometimes these bandages are left in place until the wound has healed. Most skin tears will heal in about two weeks. Because they are so difficult to care for, skin tears should be expected to leave some scarring. Use ice packs to the back of your head to reduce swelling and pain. Keep the skin tear clean and dressed. Take Tylenol for headache if needed. Follow-up with your primary care provider next week if any problems. RETURN TO THE EMERGENCY ROOM IF ANY NEW OR WORSENING SYMPTOMS. Referrals: KEYLA ARCHER MD [Primary Care Provider] - Follow up as needed I personally performed the services described in the documentation, reviewed and edited the documentation which was dictated to the scribe in my presence, and it accurately records my words and actions.
--- NOTE | 2020-06-08 18:50 | RADIOLOGY REPORT (SQ) ---
EXAM DESCRIPTION: CT HEAD WITHOUT IMAGES COMPLETED DATE/TIME: 06/08/2020 6:34 pm REASON FOR STUDY: Fall, occipital contusion, on Eliquis COMPARISON: 02/08/2017 TECHNIQUE: Axial images acquired through the brain without intravenous contrast. Images reviewed wi th bone, brain and subdural windows. Additional sagittal and coronal reconstructions were generated. Images stored on PACS. All CT scanners at this facility use dose modulation, iterative reconstruction, and/or weight based d osing when appropriate to reduce radiation dose to as low as reasonably achievable (ALARA). [facility]: Dose Right [facility]: CareDose [facility]: Dose Right [facility]: Teradose 4D [facility]: Smart [employer] RADIATION DOSE: CT Rad equipment meets quality standard of care and radiation dose reduction techniq ues were employed. CTDIvol: 53.2 mGy. DLP: 1017 mGy-cm. mGy. LIMITATIONS: None. FINDINGS: VENTRICLES: Normal size and contour. CEREBRUM: No masses. No hemorrhage. No midline shift. No evidence for acute infarction. Areas of l ow density in the white matter most likely chronic small vessel ischemic changes. CEREBELLUM: No masses. No hemorrhage. No alteration of density. No evidence for acute infarction. EXTRAAXIAL SPACES: No fluid collections. No masses. ORBITS AND GLOBE: No intra- or extraconal masses. Normal contour of globe without masses. CALVARIUM: No fracture. PARANASAL SINUSES: There is opacification of the left maxillary sinus. SOFT TISSUES: No mass or hematoma. OTHER: No other significant finding. IMPRESSION: Chronic microvascular ischemia with no acute intracranial imaging finding. Chronic left maxillary sinus disease. EVIDENCE OF ACUTE STROKE: NO. COMMENT: Quality ID # [id number]: Final reports with documentation of one or more dose reduction techniques (e.g., Automated exposure control, adjustment of the mA and/or kV according to patient size, use of iterative reconstruction technique) TECHNICAL DOCUMENTATION: JOB ID: [id number] 2010 [employer]- All Rights Reserved Reading location - IP/workstation name: [email or web address]
--- NOTE | 2020-06-08 18:53 | RADIOLOGY REPORT (SQ) ---
EXAM DESCRIPTION: CT CERVICAL SPINE WITHOUT IMAGES COMPLETED DATE/TIME: 06/08/2020 6:34 pm REASON FOR STUDY: fall COMPARISON: None. TECHNIQUE: Axial images acquired through the cervical spine without intravenous contrast. Images re viewed with lung, soft tissue and bone windows. Reconstructed coronal and sagittal MPR images review ed. Images stored on PACS. All CT scanners at this facility use dose modulation, iterative reconstruction, and/or weight based d osing when appropriate to reduce radiation dose to as low as reasonably achievable (ALARA). [facility]: Dose Right [facility]: CareDose [facility]: Dose Right [facility]: Teradose 4D [facility]: Smart [employer] RADIATION DOSE: CT Rad equipment meets quality standard of care and radiation dose reduction techniq ues were employed. CTDIvol: 25.0 mGy. DLP: 504 mGy-cm. mGy. LIMITATIONS: None. FINDINGS: ALIGNMENT: Mild anterolisthesis of C3 on C4. MINERALIZATION: Normal. VERTEBRAL BODIES: No fractures or dislocation. DISCS: Narrowing of the C6-7 disc space with marginal osteophytes. FACETS, LATERAL MASSES, POSTERIOR ELEMENTS: Hypertrophic facet changes. HARDWARE: None in the spine. VISUALIZED RIBS: No fractures. LUNG APICES AND SOFT TISSUES: No significant or acute findings. OTHER: No other significant finding. IMPRESSION: Mild anterolisthesis of C3. Degenerative disc disease. Spondylosis. Extensive facet a rthropathy. No acute finding. TECHNICAL DOCUMENTATION: JOB ID: [id number] Quality ID # [id number]: Final reports with documentation of one or more dose reduction techniques (e.g., Au tomated exposure control, adjustment of the mA and/or kV according to patient size, use of iterative reconstruction technique) 2010 [employer]- All Rights Reserved Reading location - IP/workstation name: [email or web address]
--- NOTE | 2020-06-08 18:57 | RADIOLOGY REPORT (SQ) ---
EXAM DESCRIPTION: CT CHEST WITHOUT IMAGES COMPLETED DATE/TIME: 06/08/2020 6:34 pm REASON FOR STUDY: fall, pain in ant chest wall COMPARISON: None. TECHNIQUE: CT scan performed of the chest without intravenous contrast. Images reviewed with lung, soft tissue and bone windows. Reconstructed coronal and sagittal MPR images reviewed. All images st ored on PACS. All CT scanners at this facility use dose modulation, iterative reconstruction, and/or weight based d osing when appropriate to reduce radiation dose to as low as reasonably achievable (ALARA). [facility]: Dose Right [facility]: CareDose [facility]: Dose Right [facility]: Teradose 4D [facility]: Smart [employer] RADIATION DOSE: CT Rad equipment meets quality standard of care and radiation dose reduction techniq ues were employed. CTDIvol: 14.4 mGy. DLP: 516 mGy-cm. mGy. LIMITATIONS: No technical limitations. FINDINGS: LUNGS AND PLEURA: No masses, infiltrates, or pneumothorax. No pleural effusions or pleura l calcifications. HILAR AND MEDIASTINAL STRUCTURES: No identified masses or abnormal nodes. No obvious aneurysm. HEART AND VASCULAR STRUCTURES: No aneurysm. No pericardial effusion. UPPER ABDOMEN: No significant findings. Limited exam. THYROID AND OTHER SOFT TISSUES: No masses. No adenopathy. BONES: No significant finding. HARDWARE: Pacemaker/defibrillator. OTHER: No other significant findings. IMPRESSION: NO SIGNIFICANT FINDING ON NON-CONTRASTED CHEST CT. TECHNICAL DOCUMENTATION: JOB ID: [id number] Quality ID # [id number]: Final reports with documentation of one or more dose reduction techniques (e.g., Au tomated exposure control, adjustment of the mA and/or kV according to patient size, use of iterative reconstruction technique) 2010 [employer]- All Rights Reserved Reading location - IP/workstation name: [email or web address]
[2020-06-08 19:51] VITALS: BP 140/63
== END 2020-06-08 20:10 | disposition home or self-care (01) ==
LOC: ER 17:04
DX: S51.011A Laceration without foreign body of right elbow, initial encounter (principal); S01.511A Laceration without foreign body of lip, initial encounter; S00.03XA Contusion of scalp, initial encounter; R07.89 Other chest pain; W19.XXXA Unspecified fall, initial encounter; Z88.2 Allergy status to sulfonamides; Z88.8 Allergy status to other drugs, medicaments and biological substances; Z79.01 Long term (current) use of anticoagulants; I50.9 Heart failure, unspecified; I11.0 Hypertensive heart disease with heart failure
CPT/HCPCS: 70450; 71250; 72125; 99284

== ENCOUNTER 2020-10-05 12:48 | Emergency (ER) | payer MEDICARE ==
--- NOTE | 2020-10-05 14:18 | ER Document Report ---
ED Medical Screen (RME) - General Chief Complaint: Leg Swelling Stated Complaint: POSSIBLE SWELLING IN LEG Primary Care Provider: KEYLA ARCHER MD [Primary Care Provider] - Follow up as needed TRAVEL OUTSIDE OF THE [place] IN LAST 30 DAYS: No - HPI Notes: Patient is 89-year-old female with a history of CHF who presents with bilateral lower leg swelling that began earlier today. Daughter states patient has gained 5 pounds overnight which caused him to be concerned. Patient reports shortness of breath and nonproductive cough, but but denies chest pain, abdominal pain, and fever. Patient was prescribed a 7-day course of Levaquin on 09/26/2020 for rhonchi which she completed 2 days ago. She was also diagnosed with a UTI and was started on Macrobid and ampicillin on 09/29/2020. - Related Data Allergies/Adverse Reactions: Sulfa (Sulfonamide Antibiotics) Allergy (Intermediate, Verified 10/05/20 13:35) Generalized rash codeine [Codeine] Allergy (Verified 10/05/20 13:35) Home Medications: eliquis.... Past Medical History - Social History Chew tobacco use (# tins/day): No Frequency of alcohol use: None Drug Abuse: None - Past Medical History Cardiac Medical History: Reports: Hx Congestive Heart Failure, Hx Hypercholesterolemia, Hx Hypertension Denies: Hx Atrial Fibrillation, Hx Coronary Artery Disease, Hx Heart Attack, Hx Peripheral Vascular Disease, Hx Pulmonary Embolism, Hx Heart Murmur Pulmonary Medical History: Reports: Hx Bronchitis, Hx Pneumonia, Hx Sleep Apnea - CPAP Qhs Dx'ed approx 10 years ago Denies: Hx Asthma, Hx COPD, Hx Respiratory Failure, Hx Tuberculosis Neurological Medical History: Denies: Hx Cerebrovascular Accident, Hx Seizures, Hx Parkinson's Disease Endocrine Medical History: Denies: Hx Diabetes Mellitus Type 1, Hx Diabetes Mellitus Type 2, Hx Graves' Disease, Hx Hyperthyroidism, Hx Hypothyroidism Renal/ Medical History: Reports: Hx End Stage Renal Disease - hx s4; resolved. Denies: Hx Kidney Stones, Hx Ovarian Cysts, Hx Peritoneal Dialysis, Hx Pelvic Inflammatory Disease Malignancy Medical History: Denies: Hx Breast Cancer, Hx Cervical Cancer, Hx Leukemia, Hx Lung Cancer, Hx Ovarian Cancer GI Medical History: Reports: Hx Hepatitis - 1962, Hx Colonoscopy, Hx Endoscopy. Denies: Hx Cirrhosis, Hx Crohn's Disease, Hx Gastroesophageal Reflux Disease, Hx Hiatal Hernia, Hx Irritable Bowel, Hx Liver Failure, Hx Pancreatitis, Hx Ulcer, Hx Ulcerative Colitis Musculoskeltal Medical History: Reports Hx Arthritis, Denies Hx Fibromyalgia, Denies Hx Multiple Sclerosis, Denies Hx Muscular Dystrophy, Reports Hx Musculoskeletal Deformity, Reports Hx Musculoskeletal Trauma, Denies Hx Systemic Lupus Erythematosus Skin Medical History: Denies Hx Eczema, Denies Hx Psoriasis Psychiatric Medical History: Denies: Hx Bipolar Disorder, Hx Dementia, Hx Depression, Hx Post Traumatic Stress Disorder, Hx Schizophrenia Traumatic Medical History: Reports: Hx Fractures - RT tibial Fx 2011, denies surgical intervention, reports brace x 9 weeks Infectious Medical History: Reports: Hx Hepatitis - 1961. Denies: Hx HIV Past Surgical History: Reports: Hx Appendectomy - 1949, Hx Cardiac Surgery - pacemaker, Hx Cholecystectomy - open jovi, post-op dehiscence, Hx Hysterectomy, Hx Orthopedic Surgery - Left Knee Sx, Right Knee Sx x 2, Back Sx (MILD), Hx Pacemaker - AICD. Denies: Hx Bowel Surgery, Hx Section, Hx Colostomy, Hx Coronary Artery Bypass Graft, Hx Gastric Bypass Surgery, Hx Herniorrhaphy, Hx Mastectomy, Hx Open Heart Surgery, Hx Tonsillectomy, Hx Tubal Ligation - Immunizations Hx Diphtheria, Pertussis, Tetanus Vaccination: No Physical Exam - Vital signs Vitals: Temp 98.2 F 10/05/20 13:35 - Respiratory Respiratory status: No respiratory distress Breath sounds: Normal - Cardiovascular Rhythm: Regular Heart sounds: Normal auscultation Course - Re-evaluation Re-evalutation: I have greeted and performed a rapid initial assessment of this patient. A comprehensive ED assessment and evaluation of the patient, analysis of test results and completion of medical decision making process will be conducted by an additional ED providers. - Vital Signs Vital signs: Temp Pulse Resp BP Pulse Ox 98.2 F 46 L 20 135/73 H 95 10/05/20 13:39 10/05/20 13:39 10/05/20 13:39 10/05/20 13:39 10/05/20 13:39 Doctor's Discharge - Discharge Referrals: KEYLA ARCHER MD [Primary Care Provider] - Follow up as needed
[2020-10-05 14:35] LABS: ABSOLUTE EOSINOPHILS # (AUTO) 0.3 10^3/uL (0.0-0.6); ABSOLUTE LYMPHOCYTES (AUTO) 1.5 10^3/uL (0.5-4.7); ABSOLUTE MONOCYTES (AUTO) 0.6 10^3/uL (0.1-1.4); ABSOLUTE NEUT (AUTO) 5.3 10^3/uL (1.7-8.2); BASOPHILS % (AUTO) 0.3 % (0-2); EOSINOPHILS % (AUTO) 3.9 % (0-6); HEMATOCRIT 31.1 % (36.0-47.0); HEMOGLOBIN 10.6 g/dL (12.0-15.5); LYMPHOCYTES % (AUTO) 19.4 % (13-45); MEAN CORPUSCULAR HEMOGLOBIN 31.8 pg (27.0-33.4); MEAN CORPUSCULAR HGB CONC 33.9 g/dL (32.0-36.0); MEAN CORPUSCULAR VOLUME 94 fl (80-97); MONOCYTES % (AUTO) 7.7 % (3-13); PLATELET COUNT 317 10^3/uL (150-450); RED BLOOD COUNT 3.32 10^6/uL (3.72-5.28); RED CELL DISTRIBUTION WIDTH 13.9 % (11.5-14.0); SEGMENTED NEUTROPHILS % (AUTO) 68.7 % (42-78); TOTAL CELLS COUNTED % (AUTO) 100 %; WHITE BLOOD COUNT 7.7 10^3/uL (4.0-10.5)
[2020-10-05 14:36] LABS: ALBUMIN 3.1 g/dL (3.5-5.0); ALKALINE PHOSPHATASE 88 U/L (38-126); ANION GAP 5 (5-19); ASPARTATE AMINO TRANSFERASE 22 U/L (14-36); BILIRUBIN,DIRECT 0.4 mg/dL (0.0-0.4); BILIRUBIN,TOTAL 0.5 mg/dL (0.2-1.3); BLOOD UREA NITROGEN 32 mg/dL (7-20); CARBON DIOXIDE 30 mmol/L (22-30); CHLORIDE 93 mmol/L (98-107); GLUCOSE 104 mg/dL (75-110); POTASSIUM 3.1 mmol/L (3.6-5.0); TOTAL PROTEIN 5.4 g/dL (6.3-8.2)
[2020-10-05 14:48] LABS: TROPONIN I 0.026 ng/mL
--- NOTE | 2020-10-05 14:51 | RADIOLOGY REPORT (SQ) ---
EXAM DESCRIPTION: CHEST SINGLE VIEW IMAGES COMPLETED DATE/TIME: 10/05/2020 2:39 pm REASON FOR STUDY: leg edema, shortness of breath COMPARISON: 04/10/2020 EXAM PARAMETERS: NUMBER OF VIEWS: One view. TECHNIQUE: Single frontal radiographic view of the chest acquired. RADIATION DOSE: NA LIMITATIONS: None. FINDINGS: LUNGS AND PLEURA: No opacities, masses or pneumothorax. No pleural effusion. MEDIASTINUM AND HILAR STRUCTURES: No masses. Contour normal. HEART AND VASCULAR STRUCTURES: Mildly increased cardiomegaly with central vascular congestion. BONES: No acute findings. HARDWARE: AICD, stable. OTHER: No other significant finding. IMPRESSION: Findings suggest early CHF exacerbation. Otherwise stable radiographic appearance of th e chest. TECHNICAL DOCUMENTATION: JOB ID: [id number] 2010 [employer]- All Rights Reserved Reading location - IP/workstation name: [email or web address]
[2020-10-05] MEDS ORDERED: FUROSEMIDE INJ/PF 20 MG/2 ML SDV IV ONE (16:42)
[2020-10-05] MEDS ORDERED: ONDANSETRON HCL INJ/PF 4 MG/2 ML SDV IV ONE (17:51)
--- NOTE | 2020-10-05 17:51 | ER Document Report ---
Entered by USHA BRUNSON SCRIBE 10/05/20 [id number] Acting as scribe for:JACQUELYN MOREIRA MD ED General - General Chief Complaint: Leg Swelling Stated Complaint: POSSIBLE SWELLING IN LEG Time Seen by Provider: 10/05/20 16:17 Primary Care Provider: KEYLA ARCHER MD [Primary Care Provider] - Follow up as needed Mode of Arrival: Ambulatory Information source: Patient Notes: This 89 year old female patient presents to the emergency department today with complaints of being "sick" for three weeks. Daughter at bedside reports that the patient was initially diagnosed with bronchitis and she was put on Levaquin on September 26. On September 29 she was started on ampicillin and Macrodantin for a Proteus and E. coli infected urine. Patient is finished with the Levaquin and takes her last doses of the ampicillin and Macrodantin tomorrow. Daughter reports that [facility] comes out to her house 2-3 times a week and she gained 5 pounds overnight. Patient also complains of generalized weakness, nausea, and leg swelling. TRAVEL OUTSIDE OF THE [place] IN LAST 30 DAYS: No - Related Data Allergies/Adverse Reactions: Sulfa (Sulfonamide Antibiotics) Allergy (Intermediate, Verified 10/05/20 13:35) Generalized rash codeine [Codeine] Allergy (Verified 10/05/20 13:35) Home Medications: eliquis.... Past Medical History - General Information source: Patient - Social History Smoking Status: Unknown if Ever Smoked Cigarette use (# per day): No Chew tobacco use (# tins/day): No Frequency of alcohol use: None Drug Abuse: None Lives with: Family Family History: Reviewed & Not Pertinent, Arthritis, CAD, CVA, Hyperlipidemia, Hypertension, Malignancy Patient has homicidal ideation: No - Past Medical History Cardiac Medical History: Reports: Hx Congestive Heart Failure, Hx Hypercholesterolemia, Hx Hypertension Pulmonary Medical History: Reports: Hx Bronchitis, Hx Pneumonia, Hx Sleep Apnea - CPAP Qhs Dx'ed approx 10 years ago Renal/ Medical History: Reports: Hx End Stage Renal Disease - hx s4; resolved GI Medical History: Reports: Hx Hepatitis - 1961, Hx Colonoscopy, Hx Endoscopy Musculoskeletal Medical History: Reports Hx Arthritis, Reports Hx Musculoskeletal Deformity, Reports Hx Musculoskeletal Trauma Traumatic Medical History: Reports: Hx Fractures - RT tibial Fx 2011, denies surgical intervention, reports brace x 9 weeks Infectious Medical History: Reports: Hx Hepatitis - 1961 Past Surgical History: Reports: Hx Appendectomy - 1950, Hx Cardiac Surgery - pacemaker, Hx Cholecystectomy - open jovi, post-op dehiscence, Hx Hysterectomy, Hx Orthopedic Surgery - Left Knee Sx, Right Knee Sx x 2, Back Sx (MILD), Hx Pacemaker - AICD - Immunizations Hx Diphtheria, Pertussis, Tetanus Vaccination: No Hx Pneumococcal Vaccination: 09/15/08 Review of Systems - Review of Systems Constitutional: See HPI, Weakness EENT: No symptoms reported Cardiovascular: No symptoms reported Respiratory: No symptoms reported Gastrointestinal: See HPI, Nausea Genitourinary: No symptoms reported Female Genitourinary: No symptoms reported Musculoskeletal: See HPI, Leg swelling, Ankle swelling Skin: No symptoms reported Hematologic/Lymphatic: No symptoms reported Neurological/Psychological: No symptoms reported -: Yes All other systems reviewed and negative Physical Exam - Vital signs Vitals: Temp 98.2 F 10/05/20 13:35 - Notes Notes: Physical Exam: General: Alert, appears well. HEENT: Normocephalic. Atraumatic. PERRL. Extraocular movements intact. Oropharynx clear. Neck: Supple. Non-tender. Respiratory: No respiratory distress. Clear and equal breath sounds bilaterally. Cardiovascular: Regular rate and rhythm. Abdominal: Morbidly obese. Non-tender. No distension. Normal Bowel Sounds. Back: No gross abnormalities. Extremities: Moves all four extremities. Upper extremities: Normal inspection. Normal ROM. Lower extremities: Pitting edema bilaterally. Neurological: Normal cognition. AAOx4. Normal speech. Psychological: Normal affect. Normal Mood. Skin: Warm. Dry. Normal color. Course - Re-evaluation Re-evalutation: 10/05/20 20:22 At this time the patient was complaining about her back and whole body bothering her from being on the stretcher here for so many hours. Her room air oxygen saturation is 97%. Her blood pressure is now 170/55. The daughter reported that her blood pressure was low at home. EMS recorded a pressure of 176/96. She also stated they said her heart rate was all over the place, that is probably because they were seen her AV dual paced cardiac rhythm with occasional PVC and some motion artifact. The daughter was given copies of the lab work and thorough explanation for the concern about the heart rhythm being "all over the place". - Vital Signs Vital signs: Temp Pulse Resp BP Pulse Ox 98.2 F 46 L 22 H 154/65 H 96 10/05/20 13:39 10/05/20 13:39 10/05/20 19:01 10/05/20 19:01 10/05/20 19:01 - Laboratory Results Result Diagrams: 10/05/20 13:55 10/05/20 13:55 Laboratory Results Interpreted: 10/05/20 10/05/20 10/05/20 13:55 13:55 13:55 RBC 3.32 L Hgb 10.6 L Hct 31.1 L Sodium 127.7 L Potassium 3.1 L Chloride 93 L BUN 32 H Est GFR (MDRD) Non-Af 52 L NT-Pro-B Natriuret Pep 4060 H Total Protein 5.4 L Albumin 3.1 L Urine Ketones 10/05/20 17:50 RBC Hgb Hct Sodium Potassium Chloride BUN Est GFR (MDRD) Non-Af NT-Pro-B Natriuret Pep Total Protein Albumin Urine Ketones TRACE H Critical Laboratory Results Reviewed: No Critical Results - Potassium is 3.1, she has been getting Kayexalate to lower her potassium. Sodium is 127.7, she has had sodiums low like that in the past few years. - Radiology Results Radiology Results Interpreted: 10/05/20 20:22 X-ray was read as pulmonary vascular congestion or early congestive heart failure. Critical Radiology Results Reviewed: No Critical Results - EKG Interpretation by In EKG shows normal: [place], Intervals, QRS Complexes, ST-T Waves Rate: Normal Rhythm: A.Fib, PVC's, Other - A-V dual-paced rhythm [place]/QRS: Left axis deviation, IVCD Voltage: Consistent with LVH When compared to previous EKG there are: No significant change Discharge - Discharge Clinical Impression: Pulmonary vascular congestion, Peripheral edema, Hyponatremia, Hypokalemia Condition: Stable Disposition: HOME, SELF-CARE Additional Instructions: Early Congestive Heart Failure: You have been diagnosed as having early congestive heart failure (CHF). CHF occurs when the heart is unable to pump blood efficiently, leading to fluid buildup in the veins and lungs. Typical symptoms are swelling of the legs, shortness of breath on minor exertion, and fatigue. CHF is treated with salt restriction, medicine to eliminate excess water and salt from the body, and medication to help the heart contract more efficiently. Eliminate added salt and salty foods in your diet. Decrease your activity until excess fluid has been eliminated. It will also be helpful to raise the head of your bed so you can sleep more easily. Keep a daily record of your weight. This will help your physician monitor your progress. Once extra water has been eliminated, light aerobic exercise daily -- such as walking -- will be helpful (unless your physician has told you to restrict activity for other reasons). Be sure to follow up with the physician as instructed. Contact the doctor at once if you worsen in any way. The edema you noticed is probably due to the mild early congestive heart failure. You are given a dose of Lasix that should help remove some of the excess fluid. Your urine today was clean and shows that the infection has cleared up. Your sodium was a little low today. Unfortunately increasing sodium in your diet will cause you to retain more fluid. Your potassium was low today, that was due to the Kayexalate you have been taking for elevated potassium. You should avoid high potassium foods so that you do not have elevated potassium levels again. However, you do not need to go on a low potassium diet. Follow-up with Dr. Sesay on Friday to recheck your swelling and your breathing. RETURN TO THE EMERGENCY ROOM IF ANY NEW OR WORSENING SYMPTOMS. Referrals: KEYLA ARCHER MD [Primary Care Provider] - Follow up as needed I personally performed the services described in the documentation, reviewed and edited the documentation which was dictated to the scribe in my presence, and it accurately records my words and actions.
[2020-10-05 18:37] LABS: APPEARANCE,URINE CLEAR; BILIRUBIN,URINE NEGATIVE (NEGATIVE); COLOR,URINE YELLOW; GLUCOSE, URINE NEGATIVE (NEGATIVE); KETONES,URINE TRACE mg/dL (NEGATIVE); LEUKOCYTE ESTERASE,URINE NEGATIVE (NEGATIVE); NITRITE,URINE NEGATIVE (NEGATIVE); PROTEIN,URINE NEGATIVE (NEGATIVE); URINE SPECIFIC GRAVITY 1.005; UROBILINOGEN,URINE NEGATIVE mg/dL (<2.0)
--- NOTE | 2020-10-05 19:58 | EKG REPORT ---
SEVERITY:- ABNORMAL ECG - PACEMAKER SPIKES OR ARTIFACTS ATRIAL FIBRILLATION PVCS : Confirmed by: Bijan Alberto MD 05-Oct-2020 19:57:34
[2020-10-05] MEDS ORDERED: ACETAMINOPHEN 325 MG TABLET PO ONE (20:13)
[2020-10-05 20:51] VITALS: BP 186/56
== END 2020-10-05 21:23 | disposition home or self-care (01) ==
LOC: ER 12:48
DX: I87.8 Other specified disorders of veins (principal); E87.1 Hypo-osmolality and hyponatremia; E87.6 Hypokalemia; M79.89 Other specified soft tissue disorders; R60.9 Edema, unspecified; R53.1 Weakness; R11.0 Nausea; E66.01 Morbid (severe) obesity due to excess calories; E78.00 Pure hypercholesterolemia, unspecified; I13.2 Hypertensive heart and chronic kidney disease with heart failure and with stage 5 chronic kidney disease, or end stage renal disease; N18.6 End stage renal disease; I50.9 Heart failure, unspecified; Z95.0 Presence of cardiac pacemaker; Z88.2 Allergy status to sulfonamides; Z88.6 Allergy status to analgesic agent
CPT/HCPCS: 93005; 99285; 96374; 96375; 36415; 85025; 80053; 81001; 84484; 83880; 71045; 93010; A9270; J1940; J2405